=== PATIENT | female | born 1935 | race Caucasian/White ===

== ENCOUNTER 2019-12-17 12:51 | Inpatient (IN) | payer MEDICARE, SELFPAY ==
[2019-12-17] VITALS (7 sets, daily range): BP systolic 124–141; BP diastolic 74–87; PULSE 72–96; RESP 14–18; TEMP 36.7–37; O2SAT 97–100; BMI 22.1
--- NOTE | ~2019-12-17 | XR_ITS ---
XR chest 1V portable 12/17/2019 13:24 Indication: Confusion Procedure: AP portable chest Comparison: Comparison to multiple prior studies sequentially, with oldest reviewed study dated 04/01. Findings: Cardiomegaly. The lungs are hyperinflated which is consistent with, but not diagnostic of c hronic obstructive pulmonary disease. There are scattered calcified granulomata. There is atheroscler osis of the aorta. No focal air space disease, pulmonary edema, pleural effusion or suspected pneumot horax. 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 Impression: 1: No acute cardiopulmonary disease. Reviewed, dictated and finalized at location A. ER Impression: 1: No acute cardiopulmonary disease.
--- NOTE | ~2019-12-17 | CT_ITS ---
EXAMINATION: CT brain wo con DATE: 12/17/2019 13:44 INDICATION: Altered mental status TECHNIQUE: Computed tomography (CT) of the head was performed without intravenous contrast. The dose- length product was 605.33 mGy-cm. The mA was adjusted according to patient size. Iterative reconstruc tion technique was employed. COMPARISON: CT dated 09/09/2016 FINDINGS: Generalized atrophy. Large chronic left lacunar infarction. Infarct extends into the left f rontal lobe in the centrum semiovale. No ventriculomegaly or midline shift. No acute intracranial hem orrhage, infarction, mass or mass effect. There are scattered mild periventricular and subcortical wh ite matter changes, most likely related to small vessel ischemic disease (microangiopathy). There is a calcified mass extending from the left sphenoid wing which is extra-axial and measures 1.5 x 1.9 x 1.2 cm, likely calcified meningioma. No ventriculomegaly or midline shift. There is extensive mucosal thickening of the paranasal sinuses with mucoperiosteal reaction, consistent with chronic pansinusit is. Mastoids are pneumatized. Craniovertebral junction is unremarkable. IMPRESSION: 1. No acute intracranial abnormality. 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 3: Calcified extra-axial mass originating from the left sphenoid wing, most likely meningioma measuri ng 1.9 x 1.5 x 1.2 cm. 4: Chronic pansinusitis. 5: Chronic age-related findings. Reviewed, dictated and finalized at location A. GER SQL IMPRESSION: 1. No acute intracranial abnormality. 2: Large chronic left lacunar and left frontal lobe infarctions with encephalo malacia. 3: Calcified extra-axial mass originating from the left sphenoid wing, most lik clark meningioma measuring 1.9 x 1.5 x 1.2 cm. 4: Chronic pansinusitis. 5: Chronic age-related findings.
--- NOTE | ~2019-12-17 | XR_ITS ---
EXAMINATION: XR abdomen obstructive series EXAM DATE: 12/18/2019 16:43 INDICATION: Diarrhea. TECHNIQUE: Frontal upright projection of the upper abdomen, frontal projection of the lower abdomen f or interpretation. Comparison is made to prior examination from 10/02/2004. FINDINGS: There is expected amount of colonic stool and gas. No small bowel dilation, nonobstructiv e bowel gas pattern. Stone filled gallbladder. There is no organomegaly suspected. The bones are unremarkable. There is no free intraperitoneal air. The lung bases are clear. IMPRESSION: Cholelithiasis. Reviewed, dictated and finalized at location A. IMPRESSION: Cholelithiasis.
--- NOTE | 2019-12-17 13:10 | ED_ITS ---
I attest that this documentation has been prepared under the direction and in the presence of Martín Medley DO. Lesinksi, Jacob D., Carmelo 12/17/19;13:11 HPI - Female Genitourinary General Chief complaint: Unspecified Stated complaint: confusion, possible UTI Time Seen by Provider: 12/17/19 13:03 Related Data Allergies Allergy/AdvReac Type Severity Reaction Status Date / Time No Known Allergies Allergy Mild Unverified 12/19/16 08:31 lisinopril Allergy Unknown Verified 04/30/10 18:35 [facility] Family History Family History (Updated 05/09/16 @ 23:19 by DOCTOR UNKNOWN) Sibling Family history of liver disease Family history of heart disease in male family member before age 55 Father Family history of malignant neoplasm of stomach Mother Family history of heart disease in male family member before age 55 Family history of diabetes mellitus in first degree relative Other Cerebrovascular accident Diabetes mellitus Family history of malignant neoplasm of kidney Hypertension Social History Social History Smoking status: Never smoker Second hand tobacco smoke exposure: No Alcohol intake: never Course Vital Signs Vital signs: Vital Signs Temperature 36.7 C 12/17/19 12:56 Pulse Rate 96 12/17/19 12:56 Respiratory Rate 18 12/17/19 12:56 Blood Pressure 134/87 12/17/19 12:56 Pulse Oximetry 97 12/17/19 12:56 Temperature 36.7 C 12/17/19 12:56 Pulse Rate 96 12/17/19 12:56 Respiratory Rate 18 12/17/19 12:56 Blood Pressure 134/87 12/17/19 12:56 Pulse Oximetry 97 12/17/19 12:56
--- NOTE | 2019-12-17 13:11 | ED.NEUROSD ---
HPI - Neuro Symptoms/Deficit General Chief Complaint: Unspecified Stated Complaint: confusion, possible UTI Time Seen by Provider: 12/17/19 13:03 Source: patient and family (Daughter) Mode of arrival: ambulatory Limitations: other (Poor historian) History of Present Illness HPI Narrative: The pt is an 84 y/o female who presents to the ED c/o confusion onset unknown. Pt's daughter states that the pt has a PMHx of dementia, but her condition has been worse for the past month. Pt has been insisting she go home despite being home, as well as her taking her night and day medications together. Pt's PCP was concerned about a possible UTI. Pt has also slurred her speech. The HPI is limited due to the pt being a poor historian. Onset (ago): unknown Location: speech and other (Confusion) Quality: constant (Worsening for the past month) Associated symptoms: denies other symptoms Related Data Home Medications Medication Instructions Recorded Confirmed amlodipine 12/17/19 atorvastatin 12/17/19 donepezil mg 12/17/19 levothyroxine 12/17/19 lisinopril 12/17/19 metoprolol succinate PO 12/17/19 mirtazapine mg 12/17/19 sertraline mg 12/17/19 trazodone 12/17/19 Allergies Allergy/AdvReac Type Severity Reaction Status Date / Time No Known Allergies Allergy Mild Unverified 12/19/16 08:31 Review of Systems Review of Systems: ROS unobtainable: other (Limited due to pt being a poor historian) Neurologic: Reports Abnormal speech present (Slurred (Per pt's daughter)) and Reports confusion (Per pt's daughter) [facility] Past Medical History Medical History (Updated 12/17/19 @ 16:04 by Martín Medley DO) Anxiety Arm fracture, left Arthritis Dementia Depression GI bleed HLD (hyperlipidemia) HTN (hypertension) Hypothyroidism Left elbow fracture Left wrist fracture Meningioma Pneumonia Rectal polyp UTI (urinary tract infection) Ventricular septal defect Surgical History Surgical History (Updated 12/17/19 @ 13:16 by Harry Zheng) H/O cardiac catheterization H/O: hysterectomy History of bladder suspension procedure Hx of tonsillectomy S/P left knee arthroscopy S/P VSD repair Family History Family History (Updated 05/09/16 @ 23:19 by DOCTOR UNKNOWN) Sibling Family history of liver disease Family history of heart disease in male family member before age 55 Father Family history of malignant neoplasm of stomach Mother Family history of heart disease in male family member before age 55 Family history of diabetes mellitus in first degree relative Other Cerebrovascular accident Diabetes mellitus Family history of malignant neoplasm of kidney Hypertension Social History Social History Smoking status: Never smoker Second hand tobacco smoke exposure: No Alcohol intake: never Comments PCP: Dr. Aggarwal Exam Narrative: Exam Narrative: APPEARANCE: No acute distress, nontoxic, resting in bed HEENT: Normocephalic, atraumatic, OMM, TMs clear bilaterally EYES: PERRL, EOMI NECK: Supple, nontender, full range of motion without pain, no meningismus RESPIRATORY: No respiratory distress, clear to auscultation bilaterally with no rhonchi wheezing or rales CARDIOVASCULAR: RRR s murmur ABDOMINAL: Soft, nontender, nondistended MUSCULOSKELETAL: Moves all extremities. No clubbing, cyanosis or edema. NEURO: A and O ?x 2, following commands, speech normal, cranial nerves II through XII grossly intact,muscle strength 5 out of 5 bilateral upper and lower extremities SKIN:: Warm, dry. Normal Color PSYCHIATRIC: Normal affect/mood Course Course Emergency Course: Discussed with patient and daughter no history of irregular heart rate per patient and family patient states she is been told she had atrial fibrillation or a flutter Discussed extensively with the patient's daughter the patient was at home by herself. Daughter states that she does not believe the patient is safe to care for self at home any long
--- NOTE | 2019-12-17 13:15 | ECG_ITS ---
Measurements Intervals [place] Rate: 76 P: [place]: 0 QRS: -7 QRSD: 81 T: 31 QT: 370 QTc: 418 Interpretive Statements ATRIAL FLUTTER/TACHYCARDIA DELAYED PRECORDIAL R/S TRANSITION BASELINE WANDER- I, II ABNORMAL ECG Electronically Signed On 12-17-2019 13:45:46 ARTISTIC ASSOCIATE by Oren Gallegos D.O.
--- NOTE | 2019-12-17 13:40 | PC.NURSE ---
patient refusing straight cath at this time, will try again
[2019-12-17 13:51] LABS: Basophils Absolute Auto 0.1 K/mm3 (0.0-0.1); Basophils Percent Auto 0.8 % (0.2-1.2); Eosinophils Absolute Auto 0.2 K/mm3 (0-0.3); Eosinophils Percent Auto 2.4 % (0-4.4); Hematocrit 46.2 % (37.0-47.0); Hemoglobin 14.4 g/dL (12.0-15.0); Immature Granulocyte Absolute 0.04 K/mm3 (0.00-0.031); Immature Granulocyte Percent A 0.5 % (0-0.5); Lymphocytes Absolute Auto 1.57 K/mm3 (0.9-3.2); Lymphocytes Percent Auto 20.9 % (18.3-44.2); Mean Corpuscular HGB Conc 31.2 g/dl (32-36); Mean Corpuscular Volume 93.1 fl (80-100); Mean Platelet Volume 10.1 fl (7.4-10.4); Monocytes Absolute Auto 0.7 K/mm3 (0.1-0.6); Monocytes Percent Auto 9.7 % (2.6-8.5); Neutrophils Absolute Auto 4.9 K/mm3 (1.3-6.7); Neutrophils Percent Auto 65.7 % (45.5-73.1); Platelet Count Result 306 k/mm3 (150-375); Red Blood Count 4.96 M/mm3 (4.2-5.4); Red Cell Distribution Width 13.2 % (11.5-14.5); White Blood Count 7.5 K/mm3 (4.5-10.0)
[2019-12-17 14:00] LABS: Prothrombin Time 12.8 Seconds (11.1-14.7)
[2019-12-17 14:01] LABS: Partial Thromboplastin Time 28.7 SECONDS (22.3-36.8)
[2019-12-17 14:12] LABS: Alanine Aminotransferase 22 U/L (4-35); Albumin Level 4.4 g/dL (3.5-5.1); Alkaline Phosphatase 78 U/L (38-126); Aspartate Amino Transferase 24 U/L (14-36); Bilirubin,Total 0.5 mg/dL (0.2-1.3); Blood Urea Nitrogen 26 mg/dL (7-17); Calcium 9.5 mg/dL (8.4-10.2); Carbon Dioxide 21 mmol/L (22-30); Chloride 111 mmol/L (98-107); Estimated CRCL calculation 20 ml/min; Estimated Glomerular Filt Rate 29; Glucose 104 mg/dL (65-105); Potassium 4.4 mmol/L (3.4-5.0); Sodium 143 mmol/L (137-145)
[2019-12-17 14:47] LABS: Add Urine Microscopic? NO; Appearance Urine Clear (Clear); Bilirubin Urine Negative (Negative); Blood Urine Negative (Negative); Color Urine Yellow (Yellow); Glucose Urine UA Negative (Negative); Ketones Urine Negative (Negative); Leukocyte Esterase Ur Negative LEU/UL (Negative); Nitrate Urine Negative (Negative); Protein Urine Negative (Negative); Specific Grav Ur 1.017 (1.001-1.035); Urobilinogen Urine Negative mg/dL (<2.0)
[2019-12-17] MEDS: SODIUM CHLORIDE 0.9% IV 1,000 ML 999 ML IV CONT (15:37)
--- NOTE | 2019-12-17 17:32 | ADMGEN ---
This patient, Mary Brizuela, was admitted to 2 Medical Room 254-01. Patient/family oriented to hospital policies and general routines including ID bracelet, bed and alarms, visiting hours, pain management, procedures, bathroom and other care routines, personal items, smoking policy, room service/diet, and visiting hours. Valuables list has been completed. Information on how to activate the Rapid Response Team has been discussed. Patient/Family are encouraged to report perceived risks to care and to ask questions if they do not understand what they are told or what they should do. Report received from KARLA James
[2019-12-17] MEDS: SODIUM CHLORIDE 0.9% IV 1,000 ML 80 ML IV CONT (17:52)
--- NOTE | 2019-12-17 18:35 | PC.NURSE ---
Notified LEA Yarbrough of patient status. Patient and family seem to be poor historians, they are unsure of most past medical history. cardiac monitor technician upon arrival to unit 1748 showed A-fib. Patient and family member were unsure whether this was a new diagnosis or not. Also notified Elsa of daughter's concerns of patient expressing suicidal ideations. Patient refuses any suicidal ideations to me. Patient and family state at this time she wishes to be a DNR and Elsa is aware. Elsa stated she would come see the patient as soon as possible.
--- NOTE | 2019-12-17 22:00 | PM.IMHP ---
H&P: HPI History of Present Illness Chief complaint: Increasing confusion. Narrative: Mary Brizuela is an 84-year-old female with dementia, hypertension, chronic kidney disease, hypothyroidism, and hyperlipidemia who presented to the emergency department earlier this afternoon via private vehicle from home for evaluation of increasing confusion. She is a poor historian, and she answers majority of my questions with ?I really do not know? and she is very tearful about this. According to ER documentation, she has underlying dementia but has been able to live in her own home. Over the past 1 month, however, her she has become increasingly confused and forgetful. Daughter is also concerned the patient may be taking her day and nighttime medications together however the patient denies this. Daughter was concerned that the patient seemed to be slurring her speech, and after discussions with their primary care provider, she was instructed to bring her in for evaluation. Workup done in the emergency department was relatively unrevealing. Her kidney function seems to be close to baseline, however her BUN is a bit elevated indicating that she may be slightly dehydrated. Brain CT showed a large chronic left lacunar and left frontal lobe infarctions with encephalomalacia. Urinalysis was unremarkable. Daughter is worried that she is not safe at home, and the patient is being admitted for half-way placement. The patient has no complaints at the time my evaluation, but again she is very tearful as she is aware of her confusion and she is worried that she will not be able to return home. Note, EKG shows atrial flutter which sounds to be a new diagnosis. Review of Systems Review of Systems: Narrative: Review of systems is difficult to obtain as she is extremely forgetful and answers a majority of my questions with ?I do not really know.? She did specifically denied headache, recent illness, chest pain, shortness of breath, nausea, vomiting, diarrhea, dysuria, vertigo, auditory visual changes, focal weakness, and paresthesias. [facility] Past Medical History Medical History (Updated 12/17/19 @ 23:14 by Elsa More PA-C) Anxiety Arthritis Chronic kidney disease, stage 3 Baseline creatinine appears to be around 1.60 to 1.70. Dementia Depression HLD (hyperlipidemia) HTN (hypertension) Hypothyroidism Meningioma Rectal polyp Surgical History Surgical History H/O cardiac catheterization H/O: hysterectomy History of bladder suspension procedure Hx of tonsillectomy S/P left knee arthroscopy S/P VSD repair Family History Family History Sibling Family history of heart disease in male family member before age 55 Family history of liver disease Father Family history of malignant neoplasm of stomach Mother Family history of heart disease in male family member before age 55 Family history of diabetes mellitus in first degree relative Cerebrovascular accident Social History Social History (Updated 12/17/19 @ 23:05 by Elsa More PA-C) Social History: The patient lives in her own home in [place]. She is and tells me she has 7 children. She ambulates with a walker. She does not recall what she used to do for work. She denies alcohol, tobacco, and drug use. Daughter Brittany and son Sachin are listed as her emergency contacts. Patient is listed as a full code. Smoking status: Never smoker Second hand tobacco smoke exposure: No Alcohol intake: never Substance use: never Gender identity (if verbalized by the patient): Female Spiritual care concerns: No Agree to blood products: Yes Meds Home Medications and Allergies Home Medications Medication Instructions Recorded Confirmed Type amlodipine 10 mg PO QAM 12/17/19 12/17/19 History atorvastatin 10 mg PO HS 12/17/19 12/17/19 History d
[2019-12-17] MEDS: TRAZODONE HCL 50 MG TABLET PO (23:42)
[2019-12-17] MEDS: SODIUM CHLORIDE 0.9% IV 1,000 ML 100 ML IV CONT (23:42)
[2019-12-17] MEDS: MIRTAZAPINE 15 MG TABLET PO (23:43)
[2019-12-17] MEDS: ATORVASTATIN 10 MG TABLET PO (23:43)
[2019-12-18] VITALS (11 sets, daily range): BP systolic 111–134; BP diastolic 67–81; PULSE 77–118; RESP 16–18; TEMP 36.2–36.4; O2SAT 96–100
--- NOTE | 2019-12-18 03:05 | PC.NURSE ---
Daylight Savings Time For Daylight Savings Time Ending in the Fall - Clocks are moved back. For Daylight Savings Time Beginning in the Spring - Clocks are moved ahead. For [facility], the time of change occurs at 0200 hrs. Time is taken from the surveillance observer. This entry on the patient's chart recognizes the change in time reflected during documentation. Example: 2 entries for vital signs may be charted for 0200 hrs.
[2019-12-18 05:49] LABS: Basophils Absolute Auto 0.1 K/mm3 (0.0-0.1); Basophils Percent Auto 0.7 % (0.2-1.2); Eosinophils Absolute Auto 0.3 K/mm3 (0-0.3); Hematocrit 38.9 % (37.0-47.0); Immature Granulocyte Absolute 0.04 K/mm3 (0.00-0.031); Immature Granulocyte Percent A 0.6 % (0-0.5); Lymphocytes Absolute Auto 1.67 K/mm3 (0.9-3.2); Lymphocytes Percent Auto 24.5 % (18.3-44.2); Mean Corpuscular HGB Conc 30.8 g/dl (32-36); Mean Corpuscular Hemoglobin 28.4 pg (26-34); Mean Corpuscular Volume 92.2 fl (80-100); Mean Platelet Volume 10.2 fl (7.4-10.4); Monocytes Absolute Auto 0.7 K/mm3 (0.1-0.6); Monocytes Percent Auto 10.9 % (2.6-8.5); Neutrophils Percent Auto 59.3 % (45.5-73.1); Platelet Count Result 249 k/mm3 (150-375); Red Blood Count 4.22 M/mm3 (4.2-5.4); Red Cell Distribution Width 13.1 % (11.5-14.5); White Blood Count 6.8 K/mm3 (4.5-10.0)
[2019-12-18] MEDS: LEVOTHYROXINE SODIUM 50 MCG TABLET PO (05:51)
[2019-12-18 05:54] LABS: Alanine Aminotransferase 16 U/L (4-35); Albumin Level 3.3 g/dL (3.5-5.1); Alkaline Phosphatase 65 U/L (38-126); Aspartate Amino Transferase 19 U/L (14-36); Bilirubin,Total 0.2 mg/dL (0.2-1.3); Blood Urea Nitrogen 26 mg/dL (7-17); Calcium 8.2 mg/dL (8.4-10.2); Carbon Dioxide 18 mmol/L (22-30); Chloride 112 mmol/L (98-107); Estimated CRCL calculation 25 ml/min; Estimated Glomerular Filt Rate 36; Glucose 85 mg/dL (65-105); Magnesium 1.8 mg/dL (1.6-2.3); Phosphorus 3.5 mg/dL (2.5-4.5); Potassium 4.1 mmol/L (3.4-5.0); Sodium 138 mmol/L (137-145)
[2019-12-18] MEDS: METOPROLOL SUCCINATE EXT REL 50 MG TABCR PO (08:38)
[2019-12-18] MEDS: SERTRALINE HCL 25 MG TABLET PO (08:38)
[2019-12-18] MEDS: AMLODIPINE BESYLATE 5 MG TABLET 10 MG PO (08:40)
[2019-12-18] MEDS: DONEPEZIL HCL 5 MG TABLET PO (08:40)
[2019-12-18] MEDS: lisinopriL 10 MG TABLET PO (08:40)
[2019-12-18] MEDS: ACETAMINOPHEN 325 MG TABLET 650 MG PO (09:55)
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
--- NOTE | 2019-12-18 12:36 | P.PNIM_ITS ---
Progress Note: A&P Assessment and Plan (1) Dementia: Code(s): F03.90 - Unspecified dementia without behavioral disturbance Status: Acute Assessment and Plan: * Patient with increasing confusion over the past month. * Large old left frontal infarct but no acute findings by brain CT * Patient not safe to return home since she is taking meds incorrectly which could be causing the confusion. * Care coordination consult for care home placement. (2) Chronic kidney disease, stage 3: Code(s): N18.3 - Chronic kidney disease, stage 3 (moderate) Status: Acute Assessment and Plan: * Creatinine 1.7 on admission and felt to be at baseline * Cr better today with the IV fluids. * Continue to monitor (3) HTN (hypertension): Code(s): I10 - Essential (primary) hypertension Status: Acute Assessment and Plan: * Blood pressures reviewed on 12/17 * Blodd pressures are well controlled. * Continue antihypertensives and monitor closely. (4) Atrial flutter: Code(s): I48.92 - Unspecified atrial flutter Status: Acute Assessment and Plan: * Potentially no a new diagnosis according to the daughter in the room. * Rate controlled with Metoprolol. * TSH normal. Echo pending * If patient goes to a facility, then she might do well with Eliquis. Spoke with the dtr about the risks/benefits of anticoagulation and she wishes to proceed. * Start Eliquis 2.5mg BID (5) Hypothyroidism: Code(s): E03.9 - Hypothyroidism, unspecified Status: Acute Assessment and Plan: * TSH normal. Continue levothyroxine. (6) Meningioma: Code(s): D32.9 - Benign neoplasm of meninges, unspecified Status: Acute Assessment and Plan: * Calcified extra-axial mass originating from the left sphenoid wing, likely meningioma. * Not playing a role in what is going on today. (7) Diarrhea: Code(s): R19.7 - Diarrhea, unspecified Status: Acute Assessment and Plan: * Patint with chronic diarrhea * Could be related to taking medications incorrectly * Check Abd xray * -- xray showing normal bowel gas pattern Subjective Date/time seen: 12/18/19 12:36 Interval history: 84yo female with dementia here for increasing confusion and found to have AFib. Patient is alert but confused and thus unable to provide hx. The dtr in the room and provides some hx. The patient lives alone and the patient's son checks up on her frequently. The patient does not believe that she is in her own home and calls dtr to come get her. The patietn is given a pill dispenser but she has been taking her meds incorrectly. Also, patient has been having stool incontinence and diarrhea. Unclear if this has been evaluated. The dtr state the patient is known to have a heart rhythm problem but she does not know the details. Exam Narrative: Exam Narrative: Gen - NARD Chest - CTA bilat, nml RR CV - irregularly irregular; Tele showing AFib with controlled rate Abd - soft, NT/ND, +BS Ext - no pedla edema; negative Suzy's Neuro - alert but confused Psych - pleasant and cooperative Skin - small bruise noted right flank Objective Data Vital Signs Vital Signs: Vital Signs - 24 hr 12/17/19 12:56 12/17/19 15:46 12/17/19 17:08 Temperature 98.0 F Pulse Rate 96 89 82 Respiratory Rate 18 18 17 Blood Pressure 134/87 141/80 H 140/80 Pulse
--- NOTE | 2019-12-18 12:36 | PM.IMPN ---
Progress Note: A&P Assessment and Plan (1) Dementia: Code(s): F03.90 - Unspecified dementia without behavioral disturbance Status: Acute Assessment and Plan: Patient with increasing confusion over the past month. Large old left frontal infarct but no acute findings by brain CT Patient not safe to return home since she is taking meds incorrectly which could be causing the confusion. Care coordination consult for halfway placement. (2) Chronic kidney disease, stage 3: Code(s): N18.3 - Chronic kidney disease, stage 3 (moderate) Status: Acute Assessment and Plan: Creatinine 1.7 on admission and felt to be at baseline Cr better today with the IV fluids. Continue to monitor (3) HTN (hypertension): Code(s): I10 - Essential (primary) hypertension Status: Acute Assessment and Plan: Blood pressures reviewed on 12/17 Blodd pressures are well controlled. Continue antihypertensives and monitor closely. (4) Atrial flutter: Code(s): I48.92 - Unspecified atrial flutter Status: Acute Assessment and Plan: Potentially no a new diagnosis according to the daughter in the room. Rate controlled with Metoprolol. TSH normal. Echo pending If patient goes to a facility, then she might do well with Eliquis. Spoke with the dtr about the risks/benefits of anticoagulation and she wishes to proceed. Start Eliquis 2.5mg BID (5) Hypothyroidism: Code(s): E03.9 - Hypothyroidism, unspecified Status: Acute Assessment and Plan: TSH normal. Continue levothyroxine. (6) Meningioma: Code(s): D32.9 - Benign neoplasm of meninges, unspecified Status: Acute Assessment and Plan: Calcified extra-axial mass originating from the left sphenoid wing, likely meningioma. Not playing a role in what is going on today. (7) Diarrhea: Code(s): R19.7 - Diarrhea, unspecified Status: Acute Assessment and Plan: Patint with chronic diarrhea Could be related to taking medications incorrectly Check Abd xray -- xray showing normal bowel gas pattern Subjective Date/time seen: 12/18/19 12:36 Interval history: 84yo female with dementia here for increasing confusion and found to have AFib. Patient is alert but confused and thus unable to provide hx. The dtr in the room and provides some hx. The patient lives alone and the patient's son checks up on her frequently. The patient does not believe that she is in her own home and calls dtr to come get her. The patietn is given a pill dispenser but she has been taking her meds incorrectly. Also, patient has been having stool incontinence and diarrhea. Unclear if this has been evaluated. The dtr state the patient is known to have a heart rhythm problem but she does not know the details. Exam Narrative: Exam Narrative: Gen - NARD Chest - CTA bilat, nml RR CV - irregularly irregular; Tele showing AFib with controlled rate Abd - soft, NT/ND, +BS Ext - no pedla edema; negative Suzy's Neuro - alert but confused Psych - pleasant and cooperative Skin - small bruise noted right flank Objective Data Vital Signs Vital Signs: Vital Signs - 24 hr 12/17/19 12:56 12/17/19 15:46 12/17/19 17:08 Temperature 98.0 F Pulse Rate 96 89 82 Respiratory Rate 18 18 17 Blood Pressure 134/87 141/80 H 140/80 Pulse Oximetry 97 100 99 12/17/19 17:40 12/17/19 18:55 12/17/19 20:00 Temperature 98.6 F Pulse Rate 72 96 87 Respiratory Rate 16 Blood Pressure 141/75 H Pulse Oximetry 98 12/17/19 22:00 12/18/19 00:00 12/18/19 04:00 Temperature 98.5 F Pulse Rate 88 77 84 Respiratory Rate 14 Blood Pressure 124/74 Pulse Oximetry 97 12/18/19 06:00 12/18/19 08:00 12/18/19 08:18 Temperature 97.5 F L Pulse Rate 87 84 87 Respiratory Rate 16 Blood Pressure 122/74 Pulse Oximetry 96 12/18/19 08:38 12/18/19 12:00 Temperature
[2019-12-18] MEDS: MIRTAZAPINE 7.5 MG TABLET PO (13:33)
[2019-12-18] MEDS: SODIUM CHLORIDE 0.9% IV 1,000 ML 80 ML IV CONT (17:48)
[2019-12-18] MEDS: APIXABAN 2.5 MG TABLET PO (20:53)
[2019-12-18] MEDS: ATORVASTATIN 10 MG TABLET PO (20:53)
[2019-12-18] MEDS: MIRTAZAPINE 15 MG TABLET PO (20:53)
[2019-12-18] MEDS: TRAZODONE HCL 50 MG TABLET PO (20:53)
[2019-12-18] MEDS: QUEtiapine FUMARATE 12.5 MG TABLET PO (22:23)
[2019-12-19] VITALS: PULSE 81
--- NOTE | 2019-12-19 | ECHO_ITS ---
Patient Info Name: Mary Brizuela Age: 84 years : 1935 Gender: Female Ht: 65 in Wt: 133 lbs BSA: 1.67 m2 HR: 79 bpm BP: 134 / 81 mmHg Heart Rhythm: Atrial Flutter Technical Quality: Good Exam Date: 12/19/2019 9:15 AM Exam Location: [facility] Card Pulmonary Patient Status: Inpatient Admit Date: 12/18/2019 Staff Ordering Physician: Elsa More PA-C [employer] Remover: Harry Ladd, TERESITA, RT Attending Provider: Mikhail Travis MD Referring Physician: Argenis JURADO; Exam Type: CA echo doppler color flow Study Info Indications I45.89 - Other specified conduction disorders Complete two-dimensional, color flow and Doppler transthoracic echocardiogram is performed. Summary 1. Left ventricular chamber dimension is normal. 2. Left ventricular systolic function is normal, estimated at 55-60%. 3. No residual shunting seen on Doppler. 4. Biatrial dilation. 5. Amplatzer occluder device seen in the atrial septum. Left Ventricle Left ventricular chamber dimension is normal. Left ventricular systolic function is normal, estimated at 55-60%. Right Ventricle Right ventricular chamber dimension is normal. Left Atria Left atrial chamber dimension is moderately enlarged. Right Atria Right atrial chamber dimension is moderately enlarged. Atrial Septum Amplatzer occluded device visualized. No residual shunting seen on Doppler. Aortic Valve The aortic valve is trileaflet. There is mild aortic valve sclerosis. There is trace aortic valve regurgitation. Pulmonic Valve The pulmonic valve is not well visualized. Mitral Valve The mitral valve has normal leaflets. There is trace mitral valve regurgitation. Tricuspid Valve The tricuspid valve leaflets are normal. There is mild tricuspid valve stenosis. Pericardium/Pleural The pericardium appears normal. Aorta The aortic root size at the sinus of Valsalva is normal. Left Ventricular Outflow Tract Name Value Normal LVOT 2D LVOT Diameter 1.9 cm LVOT Doppler LVOT Peak Gradient 2 mmHg LVOT Mean Gradient 1 mmHg LVOT VTI 15 cm LVOT VTI/AV VTI Ratio 0.9 LVOT Stroke Volume 41 ml LVOT CO 3.8 l/min LVOT CI 2.3 l/min/m2 Pulmonic Valve Name Value Normal PV Doppler PV Peak Gradient 2 mmHg Mitral Valve Name Value Normal MV Doppler MV Decel Martin 625 cm/s2 MV PHT
[2019-12-19 04:00] VITALS: PULSE 79
--- NOTE | 2019-12-19 04:59 | PC.NURSE ---
PT AWAKE, EXTREMELY CONFUSED. TALKING ABOUT HOW SICK HER MOTHER IS AND SHE NEEDS TO GO TAKE CARE OF HER. ATTEMPTING TO REORIENT
--- NOTE | 2019-12-19 06:19 | PC.NURSE ---
0605 PT BECOMING COMBATIVE, HITTING AND SWINGING CERTIFIED SURGICAL TECHNOLOGIST AT NURSES. CODE MAURO CALLED
[2019-12-19] MEDS: HALOPERIDOL LACTATE 5 MG/ML VIAL 1 MG IM (06:20)
--- NOTE | 2019-12-19 06:34 | PC.NURSE ---
DAUGHTER RANJANA RODRIGUEZ, INFORMED OF PATIENT AGITATION AND AGGRESSIVE BEHAVIOR. INFORMED THAT SON AMANDA IS COMING INTO SIT WITH PATIENT. SHE STATES SHE IS AWARE THAT HER {MICHAEL} PRESENCE WILL CAUSE MORE AGITATION. STATES SHE IS IN AGREEMENT WITH THIS PLAN AT PRESENT.
[2019-12-19] MEDS: APIXABAN 2.5 MG TABLET PO ×2 (09:29→20:42)
[2019-12-19] MEDS: lisinopriL 10 MG TABLET PO (09:29)
[2019-12-19 09:30] VITALS: PULSE 79
[2019-12-19] MEDS: AMLODIPINE BESYLATE 5 MG TABLET 10 MG PO (09:30)
[2019-12-19] MEDS: SERTRALINE HCL 25 MG TABLET PO (09:30)
[2019-12-19] MEDS: METOPROLOL SUCCINATE EXT REL 50 MG TABCR PO (09:30)
[2019-12-19] MEDS: DONEPEZIL HCL 5 MG TABLET PO (09:30)
--- NOTE | 2019-12-19 09:52 | P.DS_ITS ---
DS: Diagnosis Admitting Diagnosis Admitting Diagnosis: Unspecified dementia with behavioral disturbance Discharge Diagnosis (1) Dementia: Code(s): F03.90 - Unspecified dementia without behavioral disturbance Status: Acute Assessment and Plan: * Patient with increasing confusion over the past month. 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 * Patient more agitated last night but sudhir today. * Continue Aricept. Remeron, Trazodone and Zoloft for mood stablization * Psych consult at facility (2) Chronic kidney disease, stage 3: Code(s): N18.3 - Chronic kidney disease, stage 3 (moderate) Status: Acute Assessment and Plan: * Patietn with CKD III with elevated Cr on chart review * Creatinine 1.7 on admission * Cr improved to 1.4 with the IV fluids but still within her baseline (3) HTN (hypertension): Code(s): I10 - Essential (primary) hypertension Status: Acute Assessment and Plan: * Blood pressures monitored serially * Blood pressures remained well controlled. * We continued antihypertensives. (4) Atrial flutter: Code(s): I48.92 - Unspecified atrial flutter Status: Acute Assessment and Plan: * Potentially not a new diagnosis according to the daughter in the room. * Rate controlled with Metoprolol. * TSH normal. Echo pending * If patient goes to a facility, then she might do well with Eliquis. Spoke with the dtr about the risks/benefits of anticoagulation and she wishes to proceed. * Eliquis 2.5mg BID started * Discussed with son today and he agrees (5) Hypothyroidism: Code(s): E03.9 - Hypothyroidism, unspecified Status: Acute Assessment and Plan: * TSH normal. Continue levothyroxine. (6) Meningioma: Code(s): D32.9 - Benign neoplasm of meninges, unspecified Status: Acute Assessment and Plan: * Calcified extra-axial mass originating from the left sphenoid wing, likely meningioma. * Not playing a role in what is going on today. (7) Diarrhea: Code(s): R19.7 - Diarrhea, unspecified Status: Acute Assessment and Plan: * Patient with chronic diarrhea * Probably explains the metabolic nongap acidosis * Could be related to taking medications incorrectly * Abd xray showing normal bowel gas pattern and stone filled GB * Will add Fibercon DS: Summary Hospital Course Reason for hospitalization: 84yo female here for increasing confusion. Please see H&P for details Hospital Course: As above Time Spent with Patient Time attestation: Total time spent providing and/or coordinating discharge services:32 minutes Time spent: Greater than 30 minutes Specific discharge activities: Long discussion with son about hospital course and discharge plan. Exam Narrative: Exam Narrative: Gen - NARD Chest - CTA bilaterally, nml RR CV -irregularly-irregular. S1-S2. Abd -soft. Nontender. Nondistended. Positive bowel sounds Ext - No pedal edema Neuro -alert but confused. Psych -patient is pleasant and cooperative. Skin - Warm and dry DS: Data Data Completed and Pending Labs on day of discharge: Preliminary micro results at discharge 12/17/19 13:34 Blood Culture - Preliminary Blood 12/17/19 13:33 Blood Culture - Preliminary Blood
--- NOTE | 2019-12-19 09:52 | PM.DS ---
DS: Diagnosis Admitting Diagnosis Admitting Diagnosis: Unspecified dementia with behavioral disturbance Discharge Diagnosis (1) Dementia: Code(s): F03.90 - Unspecified dementia without behavioral disturbance Status: Acute Assessment and Plan: Patient with increasing confusion over the past month. 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 Patient more agitated last night but sudhir today. Continue Aricept. Remeron, Trazodone and Zoloft for mood stablization Psych consult at facility (2) Chronic kidney disease, stage 3: Code(s): N18.3 - Chronic kidney disease, stage 3 (moderate) Status: Acute Assessment and Plan: Patietn with CKD III with elevated Cr on chart review Creatinine 1.7 on admission Cr improved to 1.4 with the IV fluids but still within her baseline (3) HTN (hypertension): Code(s): I10 - Essential (primary) hypertension Status: Acute Assessment and Plan: Blood pressures monitored serially Blood pressures remained well controlled. We continued antihypertensives. (4) Atrial flutter: Code(s): I48.92 - Unspecified atrial flutter Status: Acute Assessment and Plan: Potentially not a new diagnosis according to the daughter in the room. Rate controlled with Metoprolol. TSH normal. Echo pending If patient goes to a facility, then she might do well with Eliquis. Spoke with the dtr about the risks/benefits of anticoagulation and she wishes to proceed. Eliquis 2.5mg BID started Discussed with son today and he agrees (5) Hypothyroidism: Code(s): E03.9 - Hypothyroidism, unspecified Status: Acute Assessment and Plan: TSH normal. Continue levothyroxine. (6) Meningioma: Code(s): D32.9 - Benign neoplasm of meninges, unspecified Status: Acute Assessment and Plan: Calcified extra-axial mass originating from the left sphenoid wing, likely meningioma. Not playing a role in what is going on today. (7) Diarrhea: Code(s): R19.7 - Diarrhea, unspecified Status: Acute Assessment and Plan: Patient with chronic diarrhea Probably explains the metabolic nongap acidosis Could be related to taking medications incorrectly Abd xray showing normal bowel gas pattern and stone filled GB Will add Fibercon DS: Summary Hospital Course Reason for hospitalization: 84yo female here for increasing confusion. Please see H&P for details Hospital Course: As above Time Spent with Patient Time attestation: Total time spent providing and/or coordinating discharge services:32 minutes Time spent: Greater than 30 minutes Specific discharge activities: Long discussion with son about hospital course and discharge plan. Exam Narrative: Exam Narrative: Gen - NARD Chest - CTA bilaterally, nml RR CV -irregularly-irregular. S1-S2. Abd -soft. Nontender. Nondistended. Positive bowel sounds Ext - No pedal edema Neuro -alert but confused. Psych -patient is pleasant and cooperative. Skin - Warm and dry DS: Data Data Completed and Pending Labs on day of discharge: Preliminary micro results at discharge 12/17/19 13:34 Blood Culture - Preliminary Blood 12/17/19 13:33 Blood Culture - Preliminary Blood Discharge Plan Discharge Attending physician on discharge: Mikhail Travis Consulting providers: Mikhail Travis Discharging Clinician: Mikhail Travis Anticipated Discharge Date/Time: 12/19/19 10:09 Patient Disposition: NH Senior Care/Asst Living Activity: as tolerated Diet: regular Discharge Instructions: Psychiatry consult for dementia with behavioral issues Patient Instructions: Apixaban (By mouth), Antibiotic Form Stand Alone Forms: General Discharge Information Follow-up/Referrals: Kristopher
--- NOTE | 2019-12-19 11:46 | PC.NURSE ---
Report given to JJ Eduardo at [facility]. After giving report, went into patients room and had her in wheelchair heading out of room to leave. Daughter RANJANA Soto at this time asking to speak with me. She is stating she previously stated she would pay out of pocket for patients stay but she is now refusing to do so d/t funds. Notified Deja, care coordination. She is in speaking with family. At this time, family is now wishing to discharge her home. Called and notified Dr. Travis.
[2019-12-19] MEDS: calcium polycarbophiL 625 MG TABLET PO ×2 (12:41→17:02)
[2019-12-19 14:00] VITALS: BP 124/83; PULSE 115; RESP 20; TEMP 36.2; O2SAT 99
[2019-12-19] MEDS: ATORVASTATIN 10 MG TABLET PO (20:42)
[2019-12-19] MEDS: MIRTAZAPINE 15 MG TABLET PO (20:42)
[2019-12-19] MEDS: TRAZODONE HCL 50 MG TABLET PO (20:42)
[2019-12-19 22:00] VITALS: BP 137/84; PULSE 98; RESP 20; TEMP 36.5; O2SAT 98
--- NOTE | 2019-12-20 07:30 | PC.NURSE ---
Pt refused vitals last night, aware.
--- NOTE | 2019-12-20 09:00 | PC.NURSE ---
Patient verbally and physically aggressive with staff. Patient refusing physical assessment and medications at this time. MD aware. Family at beside and assisting to calm patient. Will continue to monitor patient safety.
[2019-12-20] MEDS: LEVOTHYROXINE SODIUM 50 MCG TABLET PO (09:11)
--- NOTE | 2019-12-20 09:13 | PM.IMPN ---
Progress Note: A&P Assessment and Plan (1) Dementia: Qualifiers: Dementia type: unspecified type Dementia behavioral disturbance: with behavioral disturbance Qualified Code(s): F03.91 - Unspecified dementia with behavioral disturbance Code(s): F03.90 - Unspecified dementia without behavioral disturbance Status: Acute Assessment and Plan: CT brain on admission with no acute changes but large chronic left lacunar in left frontal lobe infarctions with encephalomalacia. Not felt safe to return home at this time. Previously known to not take her medications correctly. Now currently refusing medications. Will continue to try to give Aricept, Remeron, trazodone and Zoloft. Plan on placement most likely Geriatric Psychiatry placement at this time. (2) Chronic kidney disease, stage 3: Code(s): N18.3 - Chronic kidney disease, stage 3 (moderate) Status: Acute Assessment and Plan: Creatinine stable at 1.40 on last check. (3) HTN (hypertension): Qualifiers: Hypertension type: essential hypertension Qualified Code(s): I10 - Essential (primary) hypertension Code(s): I10 - Essential (primary) hypertension Status: Acute Assessment and Plan: Blood pressure reviewed on 12/20/2019 and stable. Continue to monitor on metoprolol and lisinopril. (4) Atrial flutter: Qualifiers: Atrial flutter type: unspecified Qualified Code(s): I48.92 - Unspecified atrial flutter Code(s): I48.92 - Unspecified atrial flutter Status: Acute Assessment and Plan: Echocardiogram with EF 55-60% and biatrial dilation. May not be new diagnosis per family. Rate remains controlled with metoprolol. Now on Eliquis for anticoagulation. If unable to be placed and instead goes home, would need to discontinue Eliquis for safety. As long as at facility, will continue Eliquis. (5) Hypothyroidism: Qualifiers: Hypothyroidism type: unspecified Qualified Code(s): E03.9 - Hypothyroidism, unspecified Code(s): E03.9 - Hypothyroidism, unspecified Status: Acute Assessment and Plan: TSH normal. Continue levothyroxine with patient encouraged to take this morning. (6) Meningioma: Code(s): D32.9 - Benign neoplasm of meninges, unspecified Status: Acute Assessment and Plan: CT laura with calcified extra-axial mass originating from the left sphenoid wing, likely meningioma. Not causing any acute issues. (7) Diarrhea: Qualifiers: Diarrhea type: unspecified type Qualified Code(s): R19.7 - Diarrhea, unspecified Code(s): R19.7 - Diarrhea, unspecified Status: Acute Assessment and Plan: No bowel movements recorded yesterday. Continue FiberCon. Will monitor. (8) DVT prophylaxis: Code(s): Z29.9 - Encounter for prophylactic measures, unspecified Status: Acute Assessment and Plan: On Eliquis. Time Spent With Patient Time with patient: 15 - 25 minutes Subjective Date/time seen: 12/20/19 09:13 Interval history: Date ofService: 84yo female with dementia here for increasing confusion and found to have atrial fibrillation. Code Armani called this morning with patient agitated. Not wanting to take medication. Daughter is present. Patient able to be brought back into room she was in the [facility]. Still refusing to take medication. Wants to go home. No chest pain. No shortness of breath. Review of Systems Review of Systems: Narrative: Upset. Constitutional: Constitutional: Denies chills and Denies fever(s) ENT: Denies dysphagia Cardiovascular: Cardiovascular: Denies chest pain Respiratory: Respiratory: Denies dyspnea Gastrointestinal: Gastrointestinal: Denies abdominal pain Musculoskeletal: Musculoskeletal: Reports no additional musculoskeletal complaints Neurologic: Denies headache(s) Psychiatric: Psychiatric: Reports confusion Exam Narrative: Exam
--- NOTE | 2019-12-20 09:24 | PCPTNOTE ---
Attempted physical therapy evaluation this AM, halle london was called and patient was ambulating in halls without assist or assistive device, and was able to get up from bed independently and fruit picker object from floor. Patient refused formal evaluation at this time, will D/c orders at this time secondary to observed independence with functional mobility.
--- NOTE | 2019-12-20 12:03 | PCOTNOTE ---
Discontinue OT services. See Physical Therapy note for details.
[2019-12-20 14:00] VITALS: BP 141/94; PULSE 87; RESP 16; TEMP 36.3; O2SAT 100
--- NOTE | 2019-12-20 16:50 | PC.NURSE ---
This patient, Mary Brizuela, was transferred to ICU 7 on 12/20/19 at 1650. Personal belongings sent with patient. Belongings list checked and signed with receiving unit. Report given to Danika RN. Appropriate documentation sent with patient.
[2019-12-20 20:00] VITALS: PULSE 78; RESP 18; O2SAT 100
[2019-12-20 20:52] VITALS: BP 114/64; PULSE 78; RESP 18; TEMP 36.7; O2SAT 100
[2019-12-20] MEDS: MIRTAZAPINE 15 MG TABLET PO (21:52)
[2019-12-20] MEDS: ATORVASTATIN 10 MG TABLET PO (21:52)
[2019-12-20] MEDS: APIXABAN 2.5 MG TABLET PO (21:52)
[2019-12-20] MEDS: TRAZODONE HCL 50 MG TABLET PO (21:53)
[2019-12-21 08:00] VITALS: BP 140/56; PULSE 78; PULSE 80; RESP 18; RESP 20; TEMP 37.2; O2SAT 100
--- NOTE | 2019-12-21 08:18 | PM.IMPN ---
Progress Note: A&P Assessment and Plan (1) Dementia: Qualifiers: Dementia behavioral disturbance: with behavioral disturbance Dementia type: unspecified type Qualified Code(s): F03.91 - Unspecified dementia with behavioral disturbance Code(s): F03.90 - Unspecified dementia without behavioral disturbance Status: Acute Assessment and Plan: CT brain on admission with no acute changes but large chronic left lacunar in left frontal lobe infarctions with encephalomalacia. Not felt safe to return home at this time. Previously known to not take her medications correctly. Medication yesterday but anticipate will be cooperative again today given her present mood. Will continue Aricept, Remeron, trazodone and Zoloft. Stable for discharge once placement secured. (2) Chronic kidney disease, stage 3: Code(s): N18.3 - Chronic kidney disease, stage 3 (moderate) Status: Acute Assessment and Plan: Creatinine stable at 1.40 on last check. (3) HTN (hypertension): Qualifiers: Hypertension type: essential hypertension Qualified Code(s): I10 - Essential (primary) hypertension Code(s): I10 - Essential (primary) hypertension Status: Acute Assessment and Plan: Blood pressure reviewed on 12/21/2019 and remains stable. Continue to monitor on metoprolol and lisinopril. (4) Atrial flutter: Qualifiers: Atrial flutter type: unspecified Qualified Code(s): I48.92 - Unspecified atrial flutter Code(s): I48.92 - Unspecified atrial flutter Status: Acute Assessment and Plan: Echocardiogram with EF 55-60% and biatrial dilation. May not be new diagnosis per family. Clinically remains stable. Heart rate controlled. Will continue metoprolol. On Eliquis for anticoagulation. If unable to be placed and instead goes home, would need to discontinue Eliquis for safety. As long as at facility, will continue Eliquis. (5) Hypothyroidism: Qualifiers: Hypothyroidism type: unspecified Qualified Code(s): E03.9 - Hypothyroidism, unspecified Code(s): E03.9 - Hypothyroidism, unspecified Status: Acute Assessment and Plan: TSH normal. Continue levothyroxine. (6) Meningioma: Code(s): D32.9 - Benign neoplasm of meninges, unspecified Status: Acute Assessment and Plan: CT brain with calcified extra-axial mass originating from the left sphenoid wing, likely meningioma. Not causing any acute issues. (7) Diarrhea: Qualifiers: Diarrhea type: unspecified type Qualified Code(s): R19.7 - Diarrhea, unspecified Code(s): R19.7 - Diarrhea, unspecified Status: Acute Assessment and Plan: No bowel movements recorded since 12/18/2019. Continue FiberCon. Will monitor. (8) DVT prophylaxis: Code(s): Z29.9 - Encounter for prophylactic measures, unspecified Status: Acute Assessment and Plan: On Eliquis. Time Spent With Patient Time with patient: 15 - 25 minutes Subjective Date/time seen: 12/21/19 08:18 Interval history: Date of Service: 12/21/2019. Admitted with increasing confusion and found to have atrial fibrillation. Patient now with sitter and being monitored as there was concern for possible suicidal thoughts yesterday after evaluation by [facility]. Patient does not recall any of events from yesterday. Very pleasant this morning. Does complain of lower joint aches. Denies any suicidal thoughts. No chest pain. No shortness of breath. No abdominal pain. Review of Systems Constitutional: Constitutional: Denies chills and Denies fever(s) ENT: Denies dysphagia Cardiovascular: Cardiovascular: Denies chest pain Respiratory: Respiratory: Denies dyspnea Gastrointestinal: Gastrointestinal: Denies abdominal pain, Denies dysphagia, Denies nausea and Denies vomiting Genitourinary: Genitourinary: Reports no additional female genitourinary complaints Musculoskel
[2019-12-21] MEDS: LEVOTHYROXINE SODIUM 50 MCG TABLET PO (08:51)
[2019-12-21] MEDS: AMLODIPINE BESYLATE 5 MG TABLET 10 MG PO (08:51)
[2019-12-21] MEDS: DONEPEZIL HCL 5 MG TABLET PO (08:51)
[2019-12-21] MEDS: METOPROLOL SUCCINATE EXT REL 50 MG TABCR PO (08:51)
[2019-12-21] MEDS: SERTRALINE HCL 25 MG TABLET PO (08:51)
[2019-12-21] MEDS: calcium polycarbophiL 625 MG TABLET PO (08:52)
[2019-12-21] MEDS: lisinopriL 10 MG TABLET PO (08:52)
[2019-12-21] MEDS: APIXABAN 2.5 MG TABLET PO (09:38)
[2019-12-21 09:39] LABS: Hematocrit 44.2 % (37.0-47.0); Hemoglobin 13.9 g/dL (12.0-15.0); Mean Corpuscular HGB Conc 31.4 g/dl (32-36); Mean Corpuscular Hemoglobin 28.7 pg (26-34); Mean Corpuscular Volume 91.1 fl (80-100); Platelet Count Result 273 k/mm3 (150-375); Red Blood Count 4.85 M/mm3 (4.2-5.4); Red Cell Distribution Width 13.2 % (11.5-14.5); White Blood Count 5.8 K/mm3 (4.5-10.0)
[2019-12-21 09:51] LABS: Alanine Aminotransferase 22 U/L (4-35); Albumin Level 3.9 g/dL (3.5-5.1); Alkaline Phosphatase 71 U/L (38-126); Aspartate Amino Transferase 24 U/L (14-36); Bilirubin,Total 0.4 mg/dL (0.2-1.3); Blood Urea Nitrogen 18 mg/dL (7-17); Calcium 9.1 mg/dL (8.4-10.2); Carbon Dioxide 23 mmol/L (22-30); Chloride 111 mmol/L (98-107); Estimated CRCL calculation 22 ml/min; Estimated Glomerular Filt Rate 31; Glucose 126 mg/dL (65-105); Potassium 3.4 mmol/L (3.4-5.0); Sodium 142 mmol/L (137-145)
[2019-12-21 14:32] VITALS: RESP 20
--- NOTE | 2019-12-21 14:45 | PM.TDS ---
Transfer Discharge Sum: Prov Provider Date of admission: 12/18/19 15:18 Primary care physician: Brendan Aggarwal, Admitting clinician: Bob Travis MD Attending physician on admission: Mikhail Travis Consults: 12/17/19 15:40 Care Coordination Consult Routine Comment: Reason for Consult:: Custodial Placement Attending physician on discharge: Celia Mina Discharging clinician: Celia Mina Anticipated date of transfer: 12/21/19 Receiving physician/facility: Dr. Kamara/[facility] DS: Diagnosis Admitting Diagnosis Admitting Diagnosis: Unspecified dementia without behavioral disturbance Discharge Diagnosis (1) Dementia: Qualifiers: Dementia behavioral disturbance: with behavioral disturbance Dementia type: unspecified type Qualified Code(s): F03.91 - Unspecified dementia with behavioral disturbance Code(s): F03.90 - Unspecified dementia without behavioral disturbance Status: Acute (2) Chronic kidney disease, stage 3: Code(s): N18.3 - Chronic kidney disease, stage 3 (moderate) Status: Acute (3) HTN (hypertension): Qualifiers: Hypertension type: essential hypertension Qualified Code(s): I10 - Essential (primary) hypertension Code(s): I10 - Essential (primary) hypertension Status: Acute (4) Atrial flutter: Qualifiers: Atrial flutter type: unspecified Qualified Code(s): I48.92 - Unspecified atrial flutter Code(s): I48.92 - Unspecified atrial flutter Status: Acute (5) Hypothyroidism: Qualifiers: Hypothyroidism type: unspecified Qualified Code(s): E03.9 - Hypothyroidism, unspecified Code(s): E03.9 - Hypothyroidism, unspecified Status: Acute (6) Meningioma: Code(s): D32.9 - Benign neoplasm of meninges, unspecified Status: Acute (7) Diarrhea: Qualifiers: Diarrhea type: unspecified type Qualified Code(s): R19.7 - Diarrhea, unspecified Code(s): R19.7 - Diarrhea, unspecified Status: Acute Transfer Discharge Sum: Med Medications Active and Home Medications: Home Medications amlodipine 10 mg PO QAM 12/17/19 [History Confirmed 12/17/19] atorvastatin 10 mg PO HS 12/17/19 [History Confirmed 12/17/19] donepezil 5 mg PO [facility] 12/17/19 [History Confirmed 12/17/19] levothyroxine 50 mcg PO [facility] 12/17/19 [History Confirmed 12/17/19] lisinopril 10 mg PO [facility] 12/17/19 [History Confirmed 12/17/19] metoprolol succinate 50 mg PO QA 12/17/19 [History Confirmed 12/17/19] mirtazapine 15 mg PO 12/17/19 [History Confirmed 12/17/19] sertraline 25 mg PO [facility] 12/17/19 [History Confirmed 12/17/19] trazodone 50 mg PO 12/17/19 [History Confirmed 12/17/19] acetaminophen [Mapap (acetaminophen)] 650 mg PO Q4H PRN #30 tablet 12/19/19 [Rx] apixaban [Eliquis] 2.5 mg PO Q12HR #60 tablet 12/19/19 [Rx] calcium polycarbophil [Fiber (calcium polycarbophil)] 625 mg PO BID #60 tablet 12/19/19 [Rx] Active Medications Acetaminophen (Tylenol Tablet) 650 mg PO Q4H PRN PRN Reason: Moderate Pain (4-6) Last Admin: 12/18/19 09:55 Dose: 650 mg Documented by: Amlodipine Besylate (Norvasc) 10 mg PO [facility] Last Admin: 12/21/19 08:51 Dose: 10 mg Documented by: Apixaban (Eliquis) 2.5 mg PO Q12HR [facility] Last Admin: 12/21/19 09:38 Dose: 2.5 mg Documented by: Atorvastatin Calcium (Lipitor) 10 mg PO [facility] Last Admin: 12/20/19 21:52 Dose: 10 mg Documented by: Calcium Polycarbophil (Fiber Con) 625 mg PO BID [facility] Last Admin: 12/21/19 08:52 Dose: 625 mg Documented by: Donepezil HCl (Aricept) 5 mg PO [facility] Last Admin: 12/21/19 08:51 Dose: 5 mg Documented by: Levothyroxine Sodium (Synthroid) 50 mcg PO DAILY@0630 [facility] Last Admin: 12/21/19 08:51 Dose: 50 mcg Documented by: Lisinopril (Prinivil) 10 mg PO [facility] Last Admin: 12/21/19 08:52 Dose: 10 mg Documented by: Metoprolol Succinate (Toprol Xl) 50 [facility] Last Adm
[2019-12-21 15:27] VITALS: BP 113/81; PULSE 80; RESP 20; O2SAT 98
[2019-12-21] MEDS: QUEtiapine FUMARATE 25 MG TABLET PO (18:35)
--- NOTE | 2019-12-28 12:51 | PC.NURSE ---
Blood cx is negative. Echo report given to Dr. Travis and faxed to PCP. Dr. Travis aware
== END 2019-12-21 20:54 | DRG 884 ==
LOC: ANHED 16:04 → ANH2MED 16:29 → ANHICU 12-26 10:59
PROVIDERS: Physician Assistant; Admitting Provider Internal Medicine; Emergency Provider Emergency Medicine; PCP Internal Medicine; Visit Provider Hospitalist
DX: F03.91 Unspecified dementia, unspecified severity, with behavioral disturbance (principal); I48.92 Unspecified atrial flutter; R19.7 Diarrhea, unspecified; I12.9 Hypertensive chronic kidney disease with stage 1 through stage 4 chronic kidney disease, or unspecified chronic kidney disease; N18.3 Chronic kidney disease, stage 3 (moderate); N18.9 Chronic kidney disease, unspecified; E03.9 Hypothyroidism, unspecified; D32.9 Benign neoplasm of meninges, unspecified; F41.8 Other specified anxiety disorders; M19.90 Unspecified osteoarthritis, unspecified site; E78.5 Hyperlipidemia, unspecified; Z90.710 Acquired absence of both cervix and uterus
CPT/HCPCS: 36415; 70450; 71045; 74019; 80053; 81003; 82607; 83735; 84100; 84443; 85025; 85027; 85610; 85730; 87040; 93005; 93306; 96360; 96361; 99285; A9270; G0378; J1630; J7030; Q9957

== ENCOUNTER 2020-01-02 15:04 | Observation (INO) | payer MEDICARE, SELFPAY ==
--- NOTE | ~2020-01-02 | CT_ITS ---
EXAMINATION: CT brain wo con DATE: 01/02/2020 16:07 INDICATION: Confusion. TECHNIQUE: Computed tomography (CT) of the head was performed without intravenous contrast. The mA wa s adjusted according to patient size. Iterative reconstruction technique was employed. The dose-lengt h product was 605.33 mGy-cm. COMPARISON: Head CT 12/17/2019 FINDINGS: There are old infarcts in the cerebellum bilaterally. There is an old infarct involving the left basal ganglia and left frontal lobe belle radiata and centrum semiovale. There are scattered a reas of low attenuation in the cerebral white matter, which is within normal limits for the patient's age. There is no intracranial hemorrhage or acute infarction. There is a 1.7 x 1.6 cm calcified extr a-axial mass in the inferior left frontotemporal region, consistent with a meningioma. There is ex va cuo dilatation of left lateral ventricle. There are likely changes of ocular lens replacement surgeri es. There is mucosal thickening in the the paranasal sinuses including complete opacification of the frontal and left maxillary sinuses with thickening and sclerosis of the salazar of the sinuses, consist ent with chronic sinusitis. The mastoid air cells are normal. IMPRESSION: 1. Old infarcts involving the cerebellum, left basal ganglia, and left frontal lobe deep white matter . 2. Stable 1.7 cm meningioma in the inferior left frontotemporal region. 3. Chronic sinusitis. Reviewed, dictated and finalized at location A. IMPRESSION: 1. Old infarcts involving the cerebellum, left basal ganglia, and left frontal lobe deep white matter. 2. Stable 1.7 cm meningioma in the inferior left frontotemporal region. 3. Chronic sinusitis.
--- NOTE | ~2020-01-02 | XR_ITS ---
EXAMINATION: XR chest 2V DATE: 01/02/2020 16:07 INDICATION: Confusion. TECHNIQUE: Frontal and lateral views of the chest were obtained. COMPARISON: Chest single view 12/17/2019, CT abdomen and pelvis 04/26/2013 FINDINGS: There is mild scarring at the lung apices. Calcified pulmonary nodules are consistent with old granulomatous disease. No pleural effusion or pneumothorax. Cardiomegaly is noted. There is a loulou sure device in the heart that may be an interatrial closure device. IMPRESSION: 1. Cardiomegaly. Reviewed, dictated and finalized at location A. IMPRESSION: 1. Cardiomegaly.
[2020-01-02 15:10] VITALS: BP 128/69; PULSE 98; RESP 14; TEMP 36.6; O2SAT 100
--- NOTE | 2020-01-02 15:19 | ECG_ITS ---
Measurements Intervals [place] Rate: 71 P: OK: 0 QRS: 40 QRSD: 83 T: 62 QT: 365 QTc: 399 Interpretive Statements ATRIAL FIBRILLATION DELAYED PRECORDIAL R/S TRANSITION LOW QRS VOLTAGE- DIFFUSE LEADS ABNORMAL ECG Electronically Signed On 01-02-2020 16:09:17 CDT by Oren Gallegos D.O.
[2020-01-02 15:40] LABS: Basophils Absolute Auto 0.03 K/mm3 (0.00-0.10); Basophils Percent Auto 0.5 % (0.0-1.0); Eosinophils Absolute Auto 0.08 K/mm3 (0.02-0.50); Eosinophils Percent Auto 1.2 % (1.0-6.0); Hematocrit 43.3 % (35.0-42.0); Hemoglobin 13.5 g/dL (11.7-13.8); Immature Granulocyte Absolute 0.02 K/mm3 (0.00-0.00); Immature Granulocyte Percent A 0.3 % (0.0-0.0); Lymphocytes Absolute Auto 1.14 K/mm3 (1.10-4.50); Lymphocytes Percent Auto 17.7 % (18.0-42.0); Mean Corpuscular HGB Conc 31.2 g/dL (32.0-36.0); Mean Corpuscular Hemoglobin 29.1 pg (27.0-31.0); Mean Corpuscular Volume 93.3 fL (78.0-102.0); Mean Platelet Volume 10.5 fl (9.2-11.8); Monocytes Absolute Auto 0.56 K/mm3 (0.10-0.90); Monocytes Percent Auto 8.7 % (2.0-11.0); Neutrophils Absolute Auto 4.6 K/mm3 (1.7-7.2); Neutrophils Percent Auto 71.6 % (50.0-70.0); Platelet Count Result 271 K/mm3 (150-420); Red Blood Count 4.64 M/mm3 (4.20-5.40); Red Cell Distribution Width 13.1 % (11.6-14.4); White Blood Count 6.4 K/mm3 (4.8-10.8)
--- NOTE | 2020-01-02 15:44 | ED.AMS ---
HPI - Altered Mental Status General Chief Complaint: Altered Mental Status Stated Complaint: AMB Time Seen by Provider: 01/02/20 15:45 Source: patient Mode of arrival: ambulatory Limitations: no limitations History of Present Illness HPI narrative: 84-year-old woman brought into the emergency department by EMS for acute confusion. Her neighbor called EMS because she was outdoors and confused. She has been stating that she lives in [place] and that she was going to work at the time. Records show she was admitted to [facility] on 12/17/2019 for confusion and on on 12/21/19 she was transferred to [facility], [place] for psychiatric treatment after she had some suicidal ideation. patient states she does not understand why she is here and that she was on her way to work when EMS picked her up. complaint: confusion Timing confirmed by: other (neighbor) Severity: moderate Related Data Home Medications Medication Instructions Recorded Confirmed amlodipine 10 mg PO QAM 12/17/19 01/02/20 atorvastatin 10 mg PO HS 12/17/19 01/02/20 donepezil 5 mg PO QAM 12/17/19 01/02/20 levothyroxine 50 mcg PO QAM 12/17/19 01/02/20 lisinopril 10 mg PO QAM 12/17/19 01/02/20 metoprolol succinate 50 mg PO QAM 12/17/19 01/02/20 mirtazapine 15 mg PO HS 12/17/19 01/02/20 sertraline 25 mg PO QAM 12/17/19 01/02/20 trazodone 50 mg PO HS 12/17/19 01/02/20 Allergies Allergy/AdvReac Type Severity Reaction Status Date / Time No Known Allergies Allergy Mild Unverified 12/19/16 08:31 Review of Systems Review of Systems: Narrative: Patient is unable to give her complete review of systems. ROS unobtainable: other Constitutional: Constitutional: Denies chills and Denies fever(s) ENT: Denies dysphagia, Denies nasal congestion and Denies sore throat Respiratory: Respiratory: Denies cough and Denies dyspnea Gastrointestinal: Gastrointestinal: Denies abdominal pain, Denies diarrhea, Denies nausea and Denies vomiting Musculoskeletal: Musculoskeletal: Denies back pain Integumentary/Breasts: Skin/Breast: Denies pruritus, Denies erythema and Denies rash Neurologic: Denies vertigo, Denies dizziness and Denies syncope Psychiatric: Psychiatric: Denies suicidal ideation Allergic/Immunologic: Allergic/Immunologic: Denies throat swelling PMFSH Past Medical History Medical History (Updated 01/02/20 @ 18:46 by Jason Proctor MD) Anxiety Arthritis Chronic kidney disease, stage 3 Baseline creatinine appears to be around 1.60 to 1.70. Dementia Depression HLD (hyperlipidemia) HTN (hypertension) Hypothyroidism Meningioma Rectal polyp Social History Social History (Updated 12/17/19 @ 23:05 by Elsa More PA-C) Social History: The patient lives in her own home in [place]. She is and tells me she has 7 children. She ambulates with a walker. She does not recall what she used to do for work. She denies alcohol, tobacco, and drug use. Daughter Brittany and son Sachin are listed as her emergency contacts. Patient is listed as a full code. Smoking status: Never smoker Second hand tobacco smoke exposure: No Alcohol intake: never Substance use: never Gender identity (if verbalized by the patient): Female Spiritual care concerns: No Agree to blood products: Yes Comments Patient states that she does not know her medications and cannot give a past medical history. Exam Const: General: healthy appearing, no acute distress, alert and confusion HENMT: Ears: external ears normal, TM's normal bilaterally and EAC's normal Mouth: Yes Normal oral and palatal mucosa present and Yes moist mucous membranes Throat: posterior oropharynx normal and uvula midline Eyes: Conjunctivae: conjunctivae normal Pupils: Equal, round and reactive pupils present EOM: EOMs intact bilaterally Neck: Neck: no meningeal signs Resp: Effort & Inspection: normal respiratory effort and no retractions Auscultation:
[2020-01-02 15:56] LABS: Alanine Aminotransferase 30 U/L (14-59); Albumin Level 3.7 g/dL (3.4-5.0); Alkaline Phosphatase 78 U/L (46-116); Anion Gap 16.2 mmol/L (7-16); Aspartate Amino Transferase 19 U/L (15-37); Bilirubin,Total 0.2 mg/dL (0.00-1.00); Blood Urea Nitrogen 43 mg/dL (7-18); Carbon Dioxide 23 mmol/L (21-32); Chloride 108 mmol/L (98-108); Estimated CRCL calculation 18 ml/min; Estimated Glomerular Filt Rate 24; Glucose 121 mg/dL (70-99); Osmolality Calculated 307 mOsm/kg (285-295); Potassium 4.2 mmol/L (3.5-5.1); Salicylate 1.2 mg/dL (2.8-20.0); Sodium 143 mmol/L (136-145); Total Protein 7.4 g/dL (6.4-8.2)
[2020-01-02 16:00] LABS: Lactic Acid 1.6 mmol/L (0.4-2.0)
[2020-01-02 16:01] LABS: Acetaminophen 0 ug/mL (10-30); CRP < 0.2 mg/dL (0.0-0.9); Ethanol < 3 mg/dL (0-6)
[2020-01-02 16:02] LABS: Calcium 8.6 mg/dL (8.5-10.1)
--- NOTE | 2020-01-02 17:35 | PC.NURSE ---
PT WAS UNABLE TO URINATE. ERP INFORMED. WATER PROVIDED TO PATIENT.
--- NOTE | 2020-01-02 18:45 | PC.NURSE ---
RETIREMENT OFFICERWHITNEY CONTACTED. ROOM REQUESTED AT 7781. ROOM 209 PROVIDED.
[2020-01-02 19:40] VITALS: PULSE 99; RESP 15; O2SAT 100
[2020-01-02] MEDS: DEXTROSE 5%/0.45% SOD CHL 1,000 ML 50 ML IV CONT (19:50)
--- NOTE | 2020-01-02 20:04 | PC.NURSE ---
Arrived from ER via wheelchair. Oriented to room and surroundings. Pleasently confused at this time. IV fluids started as ordered.
[2020-01-02 20:32] VITALS: BMI 21.1
[2020-01-02] MEDS: APIXABAN 2.5 MG TABLET PO (21:04)
[2020-01-02] MEDS: TRAZODONE HCL 50 MG TABLET PO (21:04)
[2020-01-02] MEDS: MIRTAZAPINE 15 MG TABLET PO (21:04)
[2020-01-02] MEDS: ATORVASTATIN 10 MG TABLET PO (21:04)
--- NOTE | 2020-01-02 21:10 | PC.NURSE ---
Patient up to toilet with supervision only. Gait steady. Patient missed hat in toilet when urinating-did not obtain urine for UA. Snack provider. Used call light appropriately. Needs frequent reorientation. Pleasently confused at this time
--- NOTE | 2020-01-02 21:56 | PC.NURSE ---
Urine collected for UA. Sample sent to lab. Patient remains pleasently confused. Oriented to self only.
[2020-01-02 21:57] LABS: Add Urine Microscopic? YES; Appearance Urine Clear (Clear); Bilirubin Urine Negative (Negative); Blood Urine Negative (Negative); Color Urine Yellow (Yellow); Glucose Urine UA Negative (Negative); Ketones Urine Negative (Negative); Leukocyte Esterase Ur Trace (Negative); Nitrate Urine Negative (Negative); Protein Urine Negative (Negative); Specific Grav Ur 1.025 (1.010-1.020); Urobilinogen Urine 0.2 mg/dL (0.2-1.0); pH Urine 5.5 (5.0-8.0)
[2020-01-02 22:00] VITALS: BP 114/67; PULSE 75; RESP 14; TEMP 36.6; O2SAT 98
[2020-01-02 22:04] LABS: Amphetamine Screen Urine Negative (Negative); Bacteria Urine Trace /hpf; Barbiturate Screen Urine Negative (Negative); Benzodiazepines Screen Urine Negative (Negative); Cannabinoid Screen Urine Negative (Negative); Cocaine Screen Urine Negative (Negative); Methadone Screen Urine Negative (Negative); Opiate Screen Urine Negative (Negative); Phencyclidine Screen Urine Negative (Negative); RBC Urine 0-2 /hpf (0-2); Squamous Epithelial Cell Urine Occasional /hpf (Few); WBC Urine 0-3 /hpf (0-3)
--- NOTE | 2020-01-02 22:50 | PC.NURSE ---
Patient alert to self only. Reorientation given. Asked if woman down the dickerson was screaming because whe having a baby. reassurance given
--- NOTE | 2020-01-02 23:45 | PC.NURSE ---
Patient resting at this time call light in reach.
[2020-01-03 00:29] LABS: Troponin I < 0.02 ng/mL (0.00-0.056)
--- NOTE | 2020-01-03 00:43 | PC.NURSE ---
Patient resting at this time.
--- NOTE | 2020-01-03 01:15 | PC.NURSE ---
Patient awake and oriented to self only. Asked if woman down the dickerson was in labor. Assisted to bedside commode. Reoriented to place and time. Persuaded to stay
--- NOTE | 2020-01-03 02:28 | PC.NURSE ---
Alarm sounding Patient up out of bed. Disoriented to time and place. Stated she had to get home to . Persuaded to get back into bed. Fluids continue as ordered
--- NOTE | 2020-01-03 03:39 | PC.NURSE ---
Patient alert to self only. Drank 500ml of water.
--- NOTE | 2020-01-03 04:09 | PC.NURSE ---
Patient awake in bed Oriented to self. Continues to worry that her will upset about her being gone
--- NOTE | 2020-01-03 05:08 | PC.NURSE ---
Lab here for blood draw. Continues to be confused. Oriented to self only. Cooperative with blood draw
[2020-01-03 05:23] LABS: Basophils Absolute Auto 0.03 K/mm3 (0.00-0.10); Basophils Percent Auto 0.5 % (0.0-1.0); Eosinophils Absolute Auto 0.12 K/mm3 (0.02-0.50); Eosinophils Percent Auto 2.1 % (1.0-6.0); Hematocrit 39.9 % (35.0-42.0); Hemoglobin 12.6 g/dL (11.7-13.8); Immature Granulocyte Absolute 0.02 K/mm3 (0.00-0.00); Immature Granulocyte Percent A 0.3 % (0.0-0.0); Lymphocytes Absolute Auto 1.28 K/mm3 (1.10-4.50); Lymphocytes Percent Auto 22.4 % (18.0-42.0); Mean Corpuscular HGB Conc 31.6 g/dL (32.0-36.0); Mean Corpuscular Hemoglobin 29.2 pg (27.0-31.0); Mean Corpuscular Volume 92.6 fL (78.0-102.0); Mean Platelet Volume 10.2 fl (9.2-11.8); Monocytes Percent Auto 8.7 % (2.0-11.0); Neutrophils Absolute Auto 3.8 K/mm3 (1.7-7.2); Platelet Count Result 241 K/mm3 (150-420); Red Blood Count 4.31 M/mm3 (4.20-5.40); White Blood Count 5.7 K/mm3 (4.8-10.8)
[2020-01-03 05:49] LABS: Alanine Aminotransferase 26 U/L (14-59); Albumin Level 3.4 g/dL (3.4-5.0); Alkaline Phosphatase 68 U/L (46-116); Aspartate Amino Transferase 18 U/L (15-37); Bilirubin,Total 0.4 mg/dL (0.00-1.00); Blood Urea Nitrogen 33 mg/dL (7-18); Calcium 8.3 mg/dL (8.5-10.1); Carbon Dioxide 24 mmol/L (21-32); Chloride 108 mmol/L (98-108); Estimated CRCL calculation 22 ml/min; Estimated Glomerular Filt Rate 31; Glucose 96 mg/dL (70-99); Osmolality Calculated 299 mOsm/kg (285-295); Sodium 141 mmol/L (136-145); Total Protein 6.3 g/dL (6.4-8.2)
[2020-01-03 05:52] LABS: Troponin I < 0.02 ng/mL (0.00-0.056)
[2020-01-03] MEDS: LEVOTHYROXINE SODIUM 50 MCG TABLET PO (05:53)
--- NOTE | 2020-01-03 05:58 | PC.NURSE ---
Patient alert to self only. Continues to ask how she got to hospital, where her is.
[2020-01-03 06:00] VITALS: BP 112/69; PULSE 88; RESP 14; TEMP 36.4; O2SAT 95
[2020-01-03 07:52] VITALS: BP 116/70; PULSE 80; RESP 16; TEMP 36.6; O2SAT 97
[2020-01-03 07:54] VITALS: BP 110/67; PULSE 80; RESP 18; TEMP 36.6; O2SAT 97
[2020-01-03] MEDS: lisinopriL 10 MG TABLET PO (08:15)
[2020-01-03] MEDS: DONEPEZIL HCL 5 MG TABLET PO (08:15)
[2020-01-03] MEDS: METOPROLOL SUCCINATE EXT REL 50 MG TABCR PO (08:15)
[2020-01-03] MEDS: AMLODIPINE BESYLATE 5 MG TABLET 10 MG PO (08:16)
[2020-01-03] MEDS: SERTRALINE HCL 50 MG TABLET 25 MG PO (08:16)
--- NOTE | 2020-01-03 08:53 | PC.NURSE ---
REMAINS ALERT AND ORIENTATED TO PERSON TIME AND PLACE. KNOWS SHE IS IN HOSPITAL, BUT MIXED UP ON EVENTS OF HOW SHE GOT HERE.
--- NOTE | 2020-01-03 10:28 | PC.NURSE ---
GETTING MORE ANXIOUS AND RESTLESS WANTING TO GO HOME. CONFUSED WHY CAN'T GO HOME. IT IS TIME TO GET OUT OF HERE. REORIENTATED TO TIME AND PLACE AND SITUATION. AMBULATED PATIENT TO AND FROM BATHROOM TO VOID. PATIENT TO CHAIR IN ROOM. CHAIR ALARM IN PLACE. REMINDED PATIENT TO CALL FOR ASSISTANCE AND SAFETY MEASURES REINFORCED.
[2020-01-03 10:59] VITALS: BP 109/64; PULSE 92; RESP 16; TEMP 36.6; O2SAT 97
[2020-01-03] MEDS: APIXABAN 2.5 MG TABLET PO ×2 (11:27→20:23)
[2020-01-03 13:25] VITALS: BP 114/69; PULSE 88; RESP 16; TEMP 36.4; O2SAT 97
--- NOTE | 2020-01-03 14:52 | PM.IMHP ---
H&P: HPI History of Present Illness Chief complaint: AMB Narrative: Mary Brizuela is a 84 year old female admitted yesterday in the ED due to Altered Mental Status, acute confusion, Alzheimer-type dementia, and Acute on Chronic kidney disease (stage 3). Her neighbor called EMS because she was outdoors and confused. She has been stating that she lives in [place] and that she was going to work at the time. Records show she was recently admitted to [facility] on 12/17/2019 for confusion and then on 12/21/19 she was transferred to [facility] for Ricardo-psychiatric treatment after she had some suicidal ideation. Patient states she does not understand why she is here and that she was on her way to work when EMS picked her up. Today, Mary has been tearful this morning, then calm and pleasant this afternoon. She is ambulatory, able to transfer and complete ADLs herself with standby assistance and coaching. Due to her leve of advanced dementia, she is unable to be left alone at her home. She is requiring 24/7 care or assistance or supervision. Will continue her home dose of daily Aricept and other psych home meds, including Mirtazapine, Sertraline, Trazodone. Patient states that she does not know her medications and cannot give a past medical history. She also stated that She could not tell me what the year was, this season, the month, who the current President was, or the time of day. She also stated that her was still alive but away on business. Her family said that her has . She also told me that her address was [address] [place] [address], in [facility]. 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 Her chest x-ray showed no pneumonia or effusions, only cardiomegaly. She appeared to have slight dehydration at admission, but with IV and oral fluids, her Creatinine is improving from 1.98 to 1.61. It appears her baseline creatinine is around 1.6. Lactic acid 1.6, Bili and LFTs are WNL, Troponin x 2 is WNL, and her UA is clear. Her EKG appears to have A-flutter, which is chronic for her. She is on Eliquis, will continue. [facility] worked her up and stated diagnosis was Dementia with Flight risk. I agree. Her family has difficulty caring for her in their home because she is frequently combative. She has currently not been combative for us during her admission. inventory control coordinator Shante has been in touch with the patient's daughter and family members. She is working on placement for this patient. Primary Care Physician is Dr. Aggarwal in [place], [place]. Review of Systems Review of Systems: All systems reviewed & are unremarkable except as noted in HPI and below ROS unobtainable: other Constitutional: Constitutional: Reports as per HPI, Denies body ache(s), Denies chills, Denies difficulty sleeping, Denies fatigue, Denies fever(s), Denies lethargy, Denies night sweats and Reports weakness Eyes: Eyes: Reports as per HPI, Denies blurry vision, Denies exophthalmos, Denies diplopia, Denies floaters, Denies loss of peripheral vision and Denies photophobia ENT: Reports as per HPI, Denies Normal hearing present, Denies dysphagia, Denies vertigo, Denies dizziness, Denies epistaxis, Denies nasal congestion, Denies nasal discharge, Denies tinnitus, Denies sore throat and Denies throat swelling Cardiovascular: Cardiovascular: Reports as per HPI, Denies chest pain, Denies diaphoresis, Denies syncope, Denies pedal edema, Denies leg edema, Denies lightheadedness, Denies palpitations and Denies dyspnea Respiratory: Respiratory: Reports as per HPI, Denies cough, Denies hemoptysis, Denies dyspnea, Denies dyspnea on exertion and Denies wheezing Gastrointestinal: Gastrointestinal: Reports as per HPI, Denies abdominal pain, Denies melena, Denies bloating, Denies hematochezia, Denies constipation, Denies dysphagia, Denie
--- NOTE | 2020-01-03 15:25 | PC.NURSE ---
Pt with pt.
--- NOTE | 2020-01-03 16:00 | PC.NURSE ---
Writing. Cries on & off.
[2020-01-03 16:03] LABS: Magnesium 2.1 mg/dL (1.8-2.4)
[2020-01-03 16:30] VITALS: BP 132/74; PULSE 89; RESP 16; TEMP 36.6; O2SAT 96
--- NOTE | 2020-01-03 18:02 | PM.EVENT ---
Event Note Event Note Event Note: I reviewed the SCALING MACHINE OPERATOR documentation, treatment plan, and medical decision making. Pt is alert but disoriented to why she is in the hospital. Pleasant. Mood is sad with appropriate affect. Immediate recall of 3 objects but no recall after 5 minutes. Pt confused about working, being able to return to work and her kids living at her home. Pt with Alzheimer's dementia awaiting residential placement. BUN/GFR improved after IV fluids.
--- NOTE | 2020-01-03 19:06 | PC.NURSE ---
To bed per request. Bed alarm on. Call perez in reach.
--- NOTE | 2020-01-03 19:25 | PC.NURSE ---
assisted pt to bathroom, walker and gait belt used, pt only required sba, tolerated very well, repeatedly asked when she would get to go home, short term memory impaired
[2020-01-03] MEDS: TRAZODONE HCL 50 MG TABLET PO (20:23)
[2020-01-03] MEDS: ATORVASTATIN 10 MG TABLET PO (20:23)
[2020-01-03] MEDS: MIRTAZAPINE 15 MG TABLET PO (20:23)
--- NOTE | 2020-01-03 20:50 | PC.NURSE ---
sba with walker to bathroom, pt is still forgetful and repeats questions, denies any other needs
--- NOTE | 2020-01-03 21:30 | PC.NURSE ---
pt watching tv, denies any needs or complaints, asks again when she gets to go home.
--- NOTE | 2020-01-03 22:20 | PC.NURSE ---
sba with walker to bathroom, pt tolerated really well, denies any needs, still repeating questions
--- NOTE | 2020-01-03 23:44 | PCDIET ---
pt sleeping, respirations even and regular, no evidence of distress noted at this time.
--- NOTE | 2020-01-04 | PC.NURSE ---
pt sleeping, no evidence of distress noted
[2020-01-04 01:00] VITALS: BP 118/63; PULSE 93; RESP 18; TEMP 36.6; O2SAT 100
--- NOTE | 2020-01-04 01:35 | PC.NURSE ---
pt ambulated to bathroom, with walker and sba. pt reminded to call when she needs to get up, pt very confused at this time.
--- NOTE | 2020-01-04 03:30 | PC.NURSE ---
pt is agitated and looking for her mother, pt is refusing to get back in to bed but is sitting on side of bed, this RN at bedside.
--- NOTE | 2020-01-04 04:10 | PC.NURSE ---
pt assisted to bathroom, refuses to use walker or gait belt, remained close to pt while she walked to bathroom, tolerated well, returned to chair[facility]
[2020-01-04 05:05] LABS: Anion Gap 13.2 mmol/L (7-16); Blood Urea Nitrogen 26 mg/dL (7-18); Calcium 9.1 mg/dL (8.5-10.1); Carbon Dioxide 25 mmol/L (21-32); Chloride 110 mmol/L (98-108); Estimated CRCL calculation 21 ml/min; Estimated Glomerular Filt Rate 30; Glucose 94 mg/dL (70-99); Osmolality Calculated 302 mOsm/kg (285-295); Potassium 4.2 mmol/L (3.5-5.1); Sodium 144 mmol/L (136-145)
--- NOTE | 2020-01-04 05:14 | PC.NURSE ---
pt sitting in recliner watching tv, tech still at bedside, pt a&o x1
[2020-01-04] MEDS: LEVOTHYROXINE SODIUM 50 MCG TABLET PO (05:30)
--- NOTE | 2020-01-04 06:15 | PC.NURSE ---
pt sitting in chair, pt wants to leave, tech still at bedside, pt a&o x1
[2020-01-04 07:35] VITALS: BP 127/80; PULSE 92; RESP 16; TEMP 36.8; O2SAT 98
[2020-01-04] MEDS: DONEPEZIL HCL 5 MG TABLET PO (08:05)
[2020-01-04] MEDS: AMLODIPINE BESYLATE 5 MG TABLET 10 MG PO (08:05)
[2020-01-04] MEDS: METOPROLOL SUCCINATE EXT REL 50 MG TABCR PO (08:06)
[2020-01-04] MEDS: lisinopriL 10 MG TABLET PO (08:06)
[2020-01-04] MEDS: APIXABAN 2.5 MG TABLET PO (08:06)
[2020-01-04] MEDS: SERTRALINE HCL 50 MG TABLET 25 MG PO (08:06)
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
[2020-01-04 10:21] VITALS: BP 122/69; PULSE 92; RESP 14; TEMP 36.6; O2SAT 96
--- NOTE | 2020-01-04 13:33 | PM.IMPN ---
Progress Note: A&P Assessment and Plan (1) Acute renal failure superimposed on stage 3 chronic kidney disease: Code(s): N17.9 - Acute kidney failure, unspecified; N18.3 - Chronic kidney disease, stage 3 (moderate) Status: Acute Assessment and Plan: Avoid Nephrotoxic medications keep SBP >100 for MAPs >65 for best renal perfusion avoid dehydration encourage oral hydration and improved oral intake with supplements. IVFs continuous overnight Creatinine 1.98 improved to 1.61 (near baseline level) and stayed stable today at 1.62. K today 4.2, 4.0 yesterday yesterday I/Os 2275/800 +2 voids +1 BM today I/Os 680/0 +1 voids +1 BM Bili and LFTs WNL, Lactic 1.6, Dehydration at admission may be due to living alone with Alzheimer's type dementia. needs frequent reminders to drink per staff and assistance with all meals. (2) DVT prophylaxis: Code(s): Z29.9 - Encounter for prophylactic measures, unspecified Status: Acute Assessment and Plan: no s/s of bleeding continue home daily dose of Eiquis due to chronic A-flutter avoiding SCDs due to high risk of falling (3) Alzheimer's dementia without behavioral disturbance: Code(s): G30.9 - Alzheimer's disease, unspecified; F02.80 - Dementia in other diseases classified elsewhere without behavioral disturbance Status: Acute Assessment and Plan: [facility] worked her up and stated diagnosis was Dementia with Flight risk. family unable /unwilling to care for her. sales order coordinator Shante has been in touch with the patient's daughter and family members. She is working on placement for this patient. pleasantly alert and oriented x 1-2 she does not know her medications and cannot give a past medical history. could not tell me what the year was, this season, the month, who the current President was, or the time of day. She also stated that her was still alive but away on business. Her family said that her has . She also told me that her address was [address] [place] [address], in [facility]. Will continue her on home dose of Eliquis, atorvastatin, Aricept, Levothyroxine, Mirtazapine, Namenda may help her - but it is also expensive and patient is on limited income per Reducing Machine Operator/Family report. fall precautions Care Coordinators continue to search for appropriate placement facility Subjective Date/time seen: 01/04/20 13:33 Mary was resting in bed this morning when I went in to examine and speak with her. When I asked her how she was feeling, she said the same as always. She denies any pain at this time. Stated that she just went to the bathroom, but will need to go again soon for voiding. She denies any pain with voiding or with her BMs. She denies any nausea or vomiting or stomach pain. She does not remember if she ate breakfast are not; but nursing staff stated that she only ate about 5-10% of her breakfast. Ordered nursing staff to feed patient all her meals and assist her with oral hydration, and snacks. Per nursing staff she is voiding and having bowel movements without any difficulty. Care coordinators Shante and Denise are working on placement for Mary, a memory care or Alzheimer's unit or lock-down type facility that could properly care for her. She has not had any crying today, did voice that she is anxious to go home. When I discussed that it was not safe for her to go home alone, she did get quieter and seem sad. She is not having any behavioral issues today or yesterday with our nursing staff. PT and OT have evaluated her. She will work with nursing staff to complete ADLs and task as instructed by the nurses; without any disruptions or outburst or anger or difficulty. Review of Systems Review of Systems: All systems reviewed & are unremarkable except as noted in HPI and below ROS unobtainable: other Constitutional: Constitutional: Reports as per HPI, Denies body ache(s), Denies chills, Denies di
--- NOTE | 2020-01-04 14:00 | PC.NURSE ---
1200 PATIENT LESS CONFUSED AT THIS TIME. DID EAT WELL FOR LUNCH. CALLING WHEN HAVE TO GO TO BATHROOM. CALL WHEN DONE IN THE BATHROOM. FOLLOWING DIRECTIONS WELL AT THIS TIME.
--- NOTE | 2020-01-04 14:01 | PC.NURSE ---
1350 PATIENT GETTING A LITTLE MORE CONFUSE DAY GOES ON. REMAINS COOPERATIVE. CRYING SPELLS WORKING ABOUT HER MOTHER AND SHE HASN'T GOTTEN OVER TO HOUSE TO SEE HER. REORIENTATION GIVEN. ASSIST TO PATIENT TO BED TO REST.
[2020-01-04 16:00] VITALS: BP 101/69; PULSE 84; RESP 16; TEMP 36.7; O2SAT 98
--- NOTE | 2020-01-04 17:50 | PC.NURSE ---
pt is alert to self, asks repeatedly where her is and when he is coming to take her home, pt needs constant reminders to call when getting up
--- NOTE | 2020-01-04 18:52 | PC.NURSE ---
pt has set off chair alarm twice, reminded to call first before getting up, pt is confused and keeps saying i need to go home, my is trying to leave me , pt is content to write him a letter for the time being, alarm reset
--- NOTE | 2020-01-04 19:31 | PM.EVENT ---
Event Note Event Note Event Note: Patient is still rather confused. She has no complaints today. no distress.Recalls my face from 2 days ago but does not recall my name. Cannot give day or date. Alert. Lungs clear to auscultation bilaterally , regular rate and rhythm without murmur rub gallop. Distal pulses are full and symmetric and she is well perfused. Awaiting placement at a facility that will protect from absconding. I have examined the patient reviewed the chart. I discussed the patient's care with A Matthew RUBALCAVA and agree with her assessment and plan.
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
--- NOTE | 2020-01-04 19:56 | PC.NURSE ---
pt is visibly upset, crying, pt states you're holding me against my will, ill call the police if you don't let me out within the hour , pt reassured she is in a safe place, daughter ravi has tried speaking to pt and pt repeatedly picks up phone horse breaker and hangs up, pt refuses to answer phone
--- NOTE | 2020-01-04 20:04 | PC.NURSE ---
physician called about possible anxiety medicine to help calm pt down, suggests redirection and walking pt around the room to calm her down, pt refuses walk and asks that she be let out to go home
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
--- NOTE | 2020-01-04 20:57 | PC.NURSE ---
pt given fresh ice water, chair alarm going off, pt refuses any meds, let pt know i will check back on her in a bit to make sure, pt states no you won't i don't want you back in here , chair alarm on
--- NOTE | 2020-01-04 22:23 | PC.NURSE ---
pt continues to set off chair alarm, pt has coat on and attempts to walk out room door, pt deterred by nurse standing in front of doorway, asked if she would like to rest in bed or use restroom, pt states this place is too dirty to sleep in and i wouldn't tell you if i had to pee anyway , pt refuses meds and is acting suspicious, attempted to reassure her, no physical signs of distress or pain
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
--- NOTE | 2020-01-04 23:34 | PC.NURSE ---
pt up wandering in room with coat on. Wanting phone numbers so she can call people to come pick her up. reality orientation unsuccessful. offered patient a snack, declined. will monitor.
--- NOTE | 2020-01-04 23:47 | PC.NURSE ---
pt up wandering the hallways, 1:1 initiated for safety. pt stated she is going to call the police because this nurse is following her. Attempted to explain safety, pt told me to shut up and stop talking to her. Currently back in her room. refuses to sit down to rest. will continue to monitor.
--- NOTE | 2020-01-05 00:46 | PC.NURSE ---
pt up wandering halls wearing coat, stating she needs to get home because her will be mad at her if she does not come home. Reality orientation unsuccessful, attempted to orient to place and time. Repeatedly states i dont know what you want from me. when nurse tries to explain she is in the hospital and it is the middle of the night, patient states she does not believe me and tells the nurse she is being held against her will. Assisted patient back to her room, helped her find her belongings and sat her in the juan chair. Pt now tearful saying that her is going to be so mad . offered patient food, fluids and a warm blanket. Pt refused all. 1:1 continues. pt encouraged to rest. will monitor.
--- NOTE | 2020-01-05 01:11 | PC.NURSE ---
pt remains resting in bedside chair, feet elevated. continues to become tearful at times, other times she mumbles to herself. will monitor.
--- NOTE | 2020-01-05 01:53 | PC.NURSE ---
pt remains in bedside chair, feet elevated. pt continues to talk to herself frequently. however, she is no longer tearful. call light in reach, nurse stationed outside the door for safety. warm blanket given, no othern eeds at present.
--- NOTE | 2020-01-05 02:28 | PC.NURSE ---
pt slept for about 30 minutes. awake now, talking and gesturing to a person not in the room. She said hand me your tray and reached her hands out as if to receive the tray. when asked who she was talking to she stated kirill .
--- NOTE | 2020-01-05 03:44 | PC.NURSE ---
pt resting comfortably in recliner. appears to be asleep. no needs at present.
[2020-01-05 05:33] LABS: Hematocrit 40.6 % (35.0-42.0); Hemoglobin 12.9 g/dL (11.7-13.8); Mean Corpuscular HGB Conc 31.8 g/dL (32.0-36.0); Mean Corpuscular Hemoglobin 28.8 pg (27.0-31.0); Mean Corpuscular Volume 90.6 fL (78.0-102.0); Platelet Count Result 256 K/mm3 (150-420); Red Blood Count 4.48 M/mm3 (4.20-5.40); Red Cell Distribution Width 12.8 % (11.6-14.4); White Blood Count 6.6 K/mm3 (4.8-10.8)
[2020-01-05] MEDS: LEVOTHYROXINE SODIUM 50 MCG TABLET PO (05:39)
--- NOTE | 2020-01-05 05:44 | PC.NURSE ---
pt awake intermittently. remains confused but is pleasant and cooperative. sitting in reclining chair. call light in reach. denies pain. resp even and unlabored. po med taken without difficulty. no other needs at present.
[2020-01-05 06:05] LABS: Anion Gap 15.1 mmol/L (7-16); Blood Urea Nitrogen 25 mg/dL (7-18); Calcium 8.7 mg/dL (8.5-10.1); Carbon Dioxide 22 mmol/L (21-32); Chloride 107 mmol/L (98-108); Creatine Kinase 42 U/L (26-192); Estimated CRCL calculation 23 ml/min; Estimated Glomerular Filt Rate 32; Glucose 91 mg/dL (70-99); Osmolality Calculated 294 mOsm/kg (285-295); Potassium 4.1 mmol/L (3.5-5.1); Sodium 140 mmol/L (136-145)
[2020-01-05 06:08] LABS: Troponin I < 0.02 ng/mL (0.00-0.056)
--- NOTE | 2020-01-05 07:30 | PC.NURSE ---
Patient ambulating in hallway looking for exit, states she is leaving this place if she has to walk home. SN explained she needs to be released by the doctor before she can leave. Patient remains agitated and refuses to return to room. Standing in hallway across from nurses station
--- NOTE | 2020-01-05 07:58 | PC.NURSE ---
Patient requested place to sit dowm , reluctantly followed SN back to room. Patient hesitant to enter room. Entered and sat down in chair.
--- NOTE | 2020-01-05 08:03 | PC.NURSE ---
SN delivered breakfast tray. Patient states she does not want that. tray left in room for patient
--- NOTE | 2020-01-05 08:40 | PC.NURSE ---
Patient sitting in chair, arms folded and head down on back of second chair
[2020-01-05 09:10] VITALS: BP 112/67; PULSE 86; RESP 20; TEMP 37.2; O2SAT 98
[2020-01-05 09:16] VITALS: PULSE 88
[2020-01-05] MEDS: APIXABAN 2.5 MG TABLET PO ×2 (09:16→20:07)
[2020-01-05] MEDS: METOPROLOL SUCCINATE EXT REL 50 MG TABCR PO (09:16)
[2020-01-05] MEDS: SERTRALINE HCL 50 MG TABLET 25 MG PO (09:16)
[2020-01-05] MEDS: DONEPEZIL HCL 5 MG TABLET PO (09:16)
--- NOTE | 2020-01-05 09:45 | PC.NURSE ---
Patient moved to bed to lay down, resting quietly. Awaiting placement to facility
--- NOTE | 2020-01-05 10:24 | PC.NURSE ---
Patient in bed resting quietly
--- NOTE | 2020-01-05 11:30 | PC.NURSE ---
Patient in bed resting quietly, continues to await placement to facility
--- NOTE | 2020-01-05 12:38 | PM.IMPN ---
Progress Note: A&P Assessment and Plan (1) Acute renal failure superimposed on stage 3 chronic kidney disease: Code(s): N17.9 - Acute kidney failure, unspecified; N18.3 - Chronic kidney disease, stage 3 (moderate) Status: Acute Assessment and Plan: Avoid Nephrotoxic medications, discontinued Lisinopril as discussed above. keep SBP >100 for MAPs >65 for best renal perfusion avoid dehydration encourage oral hydration and improved oral intake with supplements. IVFs continuous overnight Creatinine 1.98 improved to 1.61 (near baseline level) and Further improved to 1.53 today K today 4.2, 4.0 yesterday. 4.1 today yesterday I/Os 2275/800 +2 voids +1 BM , then 1490/250 with 2 voids and 1 BM. Bili and LFTs WNL, Lactic 1.6, Dehydration at admission may be due to living alone with Alzheimer's type dementia. needs frequent reminders to drink per staff and assistance with all meals. Feeder (2) DVT prophylaxis: Code(s): Z29.9 - Encounter for prophylactic measures, unspecified Status: Acute Assessment and Plan: no s/s of bleeding continue home daily dose of Eiquis due to chronic A-flutter avoiding SCDs due to high risk of falling (3) Alzheimer's dementia without behavioral disturbance: Code(s): G30.9 - Alzheimer's disease, unspecified; F02.80 - Dementia in other diseases classified elsewhere without behavioral disturbance Status: Acute Assessment and Plan: [facility] worked her up and stated diagnosis was Dementia with Flight risk. family unable /unwilling to care for her. palliative care coordinator Shante has been in touch with the patient's daughter and family members. She is working on placement for this patient. pleasantly alert and oriented x 1-2 she does not know her medications and cannot give a past medical history. could not tell me what the year was, this season, the month, who the current President was, or the time of day. She also stated that her was still alive but away on business. Her family said that her has . She also told me that her address was [address] [place] [address], in [facility] (which is an old address from when her was still alive) Will continue her on home dose of Eliquis, atorvastatin, Aricept, Levothyroxine, Mirtazapine, Namenda may help her - but it is also expensive and patient is on limited income per [employer]/Family report. fall precautions Care Coordinators continue to search for appropriate placement facility (4) HTN (hypertension): Qualifiers: Hypertension type: essential hypertension Qualified Code(s): I10 - Essential (primary) hypertension Code(s): I10 - Essential (primary) hypertension Status: Acute Assessment and Plan: HR is 70-90s with SBPs running 100-110s today. Instructed nursing staff to continue Metoprolol home dosing as ordered; discontinued her Lisinopril due to BPs already controlled with BB plus ARF on CKD stage 3; changed her Norvasc to PRN dosing for SBPs>160. Will continue to monitor vital signs as ordered. Subjective Date/time seen: 01/05/20 12:38 Mary Had a rough night sleep much per staff report. Throughout the night, Mary was persistently trying to get up from bed and chair, as well as ambulated the halls with nursing staff, and at times saying that she wanted to leave. Apparently she was too agitated at bedtime to take her usual oral medications that help her sleep at night, such as trazodone. Will try to time those medications earlier tonight to help staff with that problem. She has set herself she is not much of a breakfast eater at home and often skips that meal of the day; her intake is reflecting that as well with 0-25% typically for breakfast. I have ordered additional supplements such as Ensure or between meals and thrive ice cream, as well as a bedtime snack. Her HR is 70-90s with SBPs running 100-110s today. Instructed nursing staff to continue Met
--- NOTE | 2020-01-05 12:45 | PC.NURSE ---
Patient moved from room 209 to room 207 for closer monitoring by nursing staff
--- NOTE | 2020-01-05 13:30 | PC.NURSE ---
Patient sitting up in chair, stood up and states she is looking for her son to take her out of here. Reoriented patient, patient sat down in chair. Awaiting facility placement
--- NOTE | 2020-01-05 14:08 | PC.NURSE ---
Patient tearful, states her doesn't love her anymore or he would be here instead of someplace else. States she just doesn't feel good, she wants to go home. Offered bed to lay down, patient states she is not tired, does not want to lay down, she just wants to go home. Continues to await placement to facility.
--- NOTE | 2020-01-05 15:33 | PC.NURSE ---
Patient agitated, states she is not staying here any longer. Picked up belongings bag and put on jacket, walking in hallway looking for exit. Accompanied by SN. States If I can't get out the door, I'll go through a window. I mean it. Patient then stated she wanted to call someone. SN walked patient back to room, explained phone only makes local calls. Patient slammed reciever of phone. Threw blankets across room and sat down in chair. Chair alarm on
[2020-01-05 16:00] VITALS: BP 107/63; PULSE 76; RESP 18; TEMP 36.5; O2SAT 97
--- NOTE | 2020-01-05 19:05 | PC.NURSE ---
pt falling asleep in recliner, assisted to lay down in bed, pt appropriate and cooperative at this time
--- NOTE | 2020-01-05 19:55 | PC.NURSE ---
Pt is cooperative at this time, resting in bed, denies any pain or other needs at this time.
[2020-01-05] MEDS: MIRTAZAPINE 15 MG TABLET PO (20:07)
[2020-01-05] MEDS: TRAZODONE HCL 50 MG TABLET PO (20:07)
[2020-01-05] MEDS: ATORVASTATIN 10 MG TABLET PO (20:07)
--- NOTE | 2020-01-05 20:38 | PC.NURSE ---
pt sleeping, respirations even and regular, no evidence of distress noted at this time
--- NOTE | 2020-01-05 21:00 | PC.NURSE ---
pt resting in bed watching tv, assisted with turning volume up, pt denies any needs at this time, reminded to call if she needs anything, bed alarm on
--- NOTE | 2020-01-05 23:00 | PC.NURSE ---
pt sleeping, respirations even and regular, no evidence of distress noted, call light and belongings within reach, bed alarm on
[2020-01-05 23:32] VITALS: BP 109/55; PULSE 74; RESP 16; TEMP 36.7; O2SAT 99
--- NOTE | 2020-01-06 00:53 | PC.NURSE ---
pt sleeping, respirations even and regular, no evidence of distress noted, call light and belongings within reach, bed alarm on
--- NOTE | 2020-01-06 01:46 | PC.NURSE ---
pt assisted to bathroom, then back to bed, alarm on, pt a&o x1
--- NOTE | 2020-01-06 02:53 | PC.NURSE ---
pt sleeping, respirations even and regular, no evidence of distress noted, call light and belongings within reach, bed alarm on
--- NOTE | 2020-01-06 03:20 | PC.NURSE ---
assisted pt to bathroom, allowed me to hold her hand and help her to the bathroom and then back to bed, she believes she is at her mothers house and her mom is at work, a&ox1.
--- NOTE | 2020-01-06 04:31 | PC.NURSE ---
pt sleeping, respirations even and regular, no evidence of distress noted, call light and belongings within reach, bed alarm on
--- NOTE | 2020-01-06 05:00 | PC.NURSE ---
pt sat up on side of bed, stated she needed to go to work with her mother, encouraged to lay back down and rest, pt agreed and is cooperative, a&ox1
[2020-01-06] MEDS: LEVOTHYROXINE SODIUM 50 MCG TABLET PO (06:35)
--- NOTE | 2020-01-06 07:25 | PC.NURSE ---
Patient activated bed alarm, to room sitting on edge of bed, needs to use bathroom, SBA used to get patient from bed to bathroom, used call light in bathroom as instructed, returned to edge of bed, bed alarm re activated, patient asking how much longer she will be here, states needs to get home or they will sell it, advised that she will be leaving today for a different kind of facility, one where she can walk around and participate in programs, encouraged her to take her medication and that maybe her memory will improve and then she can go back home then, agreeable at this time, concerned her children will not be able to find her, advised that care management team would contact her family for her.
[2020-01-06 07:32] VITALS: BP 110/73; PULSE 86; RESP 18; TEMP 36.2; O2SAT 95
--- NOTE | 2020-01-06 07:59 | PC.NURSE ---
Took breakfast tray to room, states not hungry, she just ate, they took her tray from her about 10 minutes ago, attempt to reorient to current time of day, tray left in room for patient
[2020-01-06 08:52] VITALS: PULSE 86
[2020-01-06] MEDS: METOPROLOL SUCCINATE EXT REL 50 MG TABCR PO (08:52)
[2020-01-06] MEDS: APIXABAN 2.5 MG TABLET PO (08:52)
[2020-01-06] MEDS: DONEPEZIL HCL 5 MG TABLET PO (08:52)
[2020-01-06] MEDS: SERTRALINE HCL 50 MG TABLET 25 MG PO (08:52)
--- NOTE | 2020-01-06 08:55 | PC.NURSE ---
Took morning medication, states when am I going home, advised that hospitalist needed to write orders for discharge before she could go to the facility
--- NOTE | 2020-01-06 10:12 | PC.NURSE ---
SBA up to void, tolerated well, did use call light as instructed, continues to be confused regarding year and what town she is in
--- NOTE | 2020-01-06 10:43 | PM.DS ---
DS: Diagnosis Admitting Diagnosis Admitting Diagnosis: Acute kidney failure, unspecified Discharge Diagnosis (1) Acute renal failure superimposed on stage 3 chronic kidney disease: Code(s): N17.9 - Acute kidney failure, unspecified; N18.3 - Chronic kidney disease, stage 3 (moderate) Status: Acute Assessment and Plan: secondary to dehydration and Alzheimer's encourage oral hydration and improved oral creatinine has improved since admission creatinine 1.53 probably patient's baseline electrolytes balanced hepatic tests within normal limits lactic acid within normal (2) DVT prophylaxis: Code(s): Z29.9 - Encounter for prophylactic measures, unspecified Status: Acute Assessment and Plan: no s/s of bleeding continue home daily dose of Eiquis due to chronic A-flutter (3) Alzheimer's dementia without behavioral disturbance: Code(s): G30.9 - Alzheimer's disease, unspecified; F02.80 - Dementia in other diseases classified elsewhere without behavioral disturbance Status: Acute Assessment and Plan: [facility] worked her up and stated diagnosis was Dementia with Flight risk. quality management coordinator Shante has been in touch with the patient's daughter and family members. possible placement [facility] [place] continue Namenda (4) HTN (hypertension): Qualifiers: Hypertension type: essential hypertension Qualified Code(s): I10 - Essential (primary) hypertension Code(s): I10 - Essential (primary) hypertension Status: Acute Assessment and Plan: stable blood pressure 110/73 continue metoprolol , amlodipine and lisinopril DS: Summary Hospital Course Hospital Course: Admissions from 01/02/2020 Mary Brizuela is a 84 year old female admitted yesterday in the ED due to Altered Mental Status, acute confusion, Alzheimer-type dementia, and Acute on Chronic kidney disease (stage 3). Her neighbor called EMS because she was outdoors and confused. She has been stating that she lives in [place] and that she was going to work at the time. Records show she was recently admitted to [facility] on 12/17/2019 for confusion and then on 12/21/19 she was transferred to [facility] for [facility]-psychiatric treatment after she had some suicidal ideation. Patient states she does not understand why she is here and that she was on her way to work when EMS picked her up. Today, Mary has been tearful this morning, then calm and pleasant this afternoon. She is ambulatory, able to transfer and complete ADLs herself with standby assistance and coaching. Due to her leve of advanced dementia, she is unable to be left alone at her home. She is requiring 24/7 care or assistance or supervision. Will continue her home dose of daily Aricept and other psych home meds, including Mirtazapine, Sertraline, Trazodone. Patient states that she does not know her medications and cannot give a past medical history. She also stated that She could not tell me what the year was, this season, the month, who the current President was, or the time of day. She also stated that her was still alive but away on business. Her family said that her has . She also told me that her address was [address] [place] [address], in [facility]. 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 Her chest x-ray showed no pneumonia or effusions, only cardiomegaly. She appeared to have slight dehydration at admission, but with IV and oral fluids, her Creatinine is improving from 1.98 to 1.61. It appears her baseline creatinine is around 1.6. Lactic acid 1.6, Bili and LFTs are WNL, Troponin x 2 is WNL, and her UA is clear. Her EKG appears to have A-flutter, which is chronic for her. She is on Eliquis, will continue. [facility]
--- NOTE | 2020-01-06 10:46 | PC.NURSE ---
Up to bathroom, using call light appropriately, cooperative
--- NOTE | 2020-01-06 13:02 | PC.NURSE ---
Called [facility] ambulance for transfer to [facility].
--- NOTE | 2020-01-06 13:02 | PC.NURSE ---
Report to [facility] at [facility] and [facility]
--- NOTE | 2020-01-06 13:20 | PC.NURSE ---
Assisted patient to pack her belongings and put shoes on, cooperative and understands is discharged today, however not going home, will go to rehab first and will decide later if will be able to go home
--- NOTE | 2020-01-06 13:25 | PC.NURSE ---
Report to EMS for transfer to locked alzheimer's unit at [facility], personal items returned to patient
== END 2020-01-06 13:25 ==
LOC: CHSED 18:46 → CHS2ND 19:06
PROVIDERS: Nurse Practitioner; Admitting Provider Emergency Medicine; Emergency Provider Emergency Medicine; Visit Provider Emergency Medicine
DX: G30.9 Alzheimer's disease, unspecified (principal); F02.80 Dementia in other diseases classified elsewhere, unspecified severity, without behavioral disturbance, psychotic disturbance, mood disturbance, and anxiety; I12.9 Hypertensive chronic kidney disease with stage 1 through stage 4 chronic kidney disease, or unspecified chronic kidney disease; N18.3 Chronic kidney disease, stage 3 (moderate); F41.9 Anxiety disorder, unspecified; E78.5 Hyperlipidemia, unspecified; E03.9 Hypothyroidism, unspecified; J32.1 Chronic frontal sinusitis; J32.0 Chronic maxillary sinusitis; Z79.899 Other long term (current) drug therapy
CPT/HCPCS: 36415; 70450; 71046; 80048; 80053; 80307; 81001; 82550; 82553; 83605; 83735; 84484; 85025; 85027; 86140; 87040; 93005; 96360; 96361; 97161; 97165; 99283; 99285; A9270; G0378